=== PATIENT | female | born 1945 | race Caucasian/White ===

== ENCOUNTER → 2017-07-04 | Outpatient (CLI) | payer MEDICARE, OTHER ==
[2014-12-13 10:25] VITALS: BP 139/82
[~2017-07-04] MED LIST: ACLI400A2 IH; ATOR10TA PO; CALC500T54 PO; LEVO50TA5 PO; LOSA1TAB18 PO; MOXI3DRO2 LEFTEYE; MOXI3DRO2 RIGHTEYE; MULT-246 PO; NEPA1.7D LEFTEYE; NEPA1.7D RIGHTEYE; PRED5DRO16 LEFTEYE; PRED5DRO16 RIGHTEYE; VIT1CAPS12 PO
--- NOTE | 2017-07-04 09:29 | RAD ---
Indication chest congestion. History of COPD. Frontal and lateral views of the chest were obtained. Comparison is made to an examination 02/02/2016. There are background changes compatible with emphysema and/or fibrosis. There is a calcified granuloma in the right lung. Heart size is within normal limits. There is no congestive heart failure focal infiltrate significant pleural fluid collection or pneumothorax. There has not been a significant change compared to the previous exam. IMPRESSION: No acute finding. No significant change. Chronic changes are noted
== END | disposition home or self-care (01) ==
LOC: DXRADRC 08:53
PROVIDERS: ATTEND Physician Assistant Medical
DX: J84.10 Pulmonary fibrosis, unspecified (principal); J44.9 Chronic obstructive pulmonary disease, unspecified
CPT/HCPCS: 71020

== ENCOUNTER → 2017-07-09 | Outpatient (CLI) | payer MEDICARE, OTHER ==
[2014-12-13 10:25] VITALS: BP 139/82
--- NOTE | 2017-07-09 17:26 | RAD ---
DATE: 07/09/2017 EXAM: MAMMO MIGUEL SCREENING BILATERAL HISTORY: Asymptomatic screening mammogram. COMPARISON: None available This study was interpreted with the benefit of Computerized Aided Detection (CAD). The breast parenchyma shows scattered fibroglandular densities. Breast parenchyma level B. FINDINGS: Bilateral CC and MLO views of the breasts were performed. Bilateral breast tomosynthesis performed. Right breast: There are no suspicious microcalcifications, masses or areas of architectural distortion. Left breast: There is a 4 mm mass identified in the lower outer left breast at posterior depth with indistinct margins. Recommend targeted ultrasound evaluation. IMPRESSION: Left breast: Incomplete mammogram. Recommend ultrasound evaluation of the lower inner quadrant at posterior depth. Right breast: Negative mammogram. BI-RADS CATEGORY: 0 INCOMPLETE: NEEDS ADDITIONAL IMAGING EVALUATION AND/OR PRIOR MAMMOGRAMS FOR COMPARISON. RECOMMENDED FOLLOW-UP: ADD ADDITIONAL IMAGING PQRS compliance statement: Mammography is a sensitive method for finding small breast cancers, but it does not detect them all and is not a substitute for careful clinical examination. A negative mammogram does not negate a clinically suspicious finding and should not result in delay in biopsying a clinically suspicious abnormality. "Our facility is accredited by the [employer] Mammography Program."
== END | disposition home or self-care (01) ==
LOC: MAMMO 11:27
PROVIDERS: ATTEND Physician Assistant Medical
DX: Z12.31 Encounter for screening mammogram for malignant neoplasm of breast (principal)
CPT/HCPCS: 77063; G0202; 77067

== ENCOUNTER → 2017-07-16 | Outpatient (CLI) | payer MEDICARE, OTHER ==
[2014-12-13 10:25] VITALS: BP 139/82
--- NOTE | 2017-07-16 17:43 | RAD ---
Ultrasound left breast Indication: Abnormality seen on most recent screening mammogram from 07/09/2017. Technique: Left whole breast ultrasound Comparison: Previous mammogram from 07/09/2017 Findings: There is a 5 mm intraparenchymal lymph node between 2 and 3:00 position with central fatty hilum and hilar blood flow. No suspicious cystic or solid mass seen. Impression: Previously seen abnormality on screening mammogram represents interparenchymal lymph node. No other suspicious solid or cystic lesions seen on today's ultrasound. BI-RADS 2: Benign finding.
== END | disposition home or self-care (01) ==
LOC: US 09:25
PROVIDERS: ATTEND Physician Assistant Medical
DX: R92.8 Other abnormal and inconclusive findings on diagnostic imaging of breast (principal)
CPT/HCPCS: 76641

== ENCOUNTER → 2018-03-10 | Outpatient (CLI) | payer MEDICARE, OTHER ==
[2014-12-13 10:25] VITALS: BP 139/82
[~2018-03-10] MED LIST changes: -LOSA1TAB18 PO; +LOSA1TAB25 PO
--- NOTE | 2018-03-10 14:29 | CARD ---
MR#: [id number] Date of Study: 03/10/2018 Ordering Physician: DUKE CHRISTINE, Referring Physician: DUKE CHRISTINE, Tech: TABITHA Pichardo APPROVED REPORT EXAM: Two-dimensional and M-mode echocardiogram with Doppler and color Doppler. Other Information Quality : AverageHR: 71bpm INDICATION COPD Hypertension/HCVD 2D DIMENSIONS RVDd3.0 (2.9-3.5cm)Left Atrium(2D)3.0 (1.6-4.0cm) IVSd0.9 (0.7-1.1cm)Aortic Root(2D)3.4 (2.0-3.7cm) LVDd4.2 (3.9-5.9cm)LVOT Diameter2.1 (1.8-2.4cm) PWd0.8 (0.7-1.1cm)LVDs2.1 (2.5-4.0cm) FS (%) 49.4 %SV64.4 ml LVEF(%)81.1 (>50%) Aortic Valve AoV Peak Jose.144.6cm/sAoV VTI30.8cm AO Peak GR.8.4mmHgLVOT Peak Jose.108.7cm/s LVOT VTI 23.52cmAO Mean GR.5mmHg BRIGETTE (VMAX)2.87ss8VQZ (VTI)2.69cm2 AI P 1/2 Ylpd954ef Mitral Valve MV E Vbtjeehy11.7cm/sMV A Velocity0.4cm/s E/A Lfhqd087.8 Tricuspid Valve TR P. Zqqdadtf971ju/sTR Peak Gr.11mmHg Pulmonary Vein S1 Qqtyeqvd64.0cm/sD2 Trorrgrb28.6cm/s LEFT VENTRICLE The left ventricle is normal size. There is normal left ventricular wall thickness. The left ventricu lar systolic function is normal. The ejection fraction is estimated at 65-70%. There is normal LV seg mental wall motion. RIGHT VENTRICLE The right ventricle is normal size. The right ventricular systolic function is normal. ATRIA The left atrium size is normal. The right atrium size is normal. The interatrial septum is intact wit h no evidence for an atrial septal defect or patent foramen ovale as noted on 2-D or Doppler imaging. AORTIC VALVE The aortic valve is calcified but opens well. Doppler and Color Flow revealed trace to mild aortic re gurgitation. There is no significant aortic valvular stenosis. There is no aortic valvular vegetation . MITRAL VALVE The mitral valve is thickened but opens well. There is no evidence of mitral valve prolapse. There is no mitral valve stenosis. Doppler and Color Flow revealed no mitral valve regurgitation noted. TRICUSPID VALVE The tricuspid valve is not well visualized. Doppler and Color Flow revealed mild tricuspid regurgitat ion. There is no tricuspid valve prolapse or vegetation. There is no tricuspid valve stenosis. PULMONIC VALVE The pulmonic valve is not well visualized. Doppler and Color Flow revealed no pulmonic valvular regur gitation. There is no pulmonic valvular stenosis. GREAT VESSELS The aortic root is normal in size. The IVC is normal in size and collapses >50% with inspiration. PERICARDIAL EFFUSION There is no pleural effusion. There is no evidence of significant pericardial effusion. Critical Notification Critical Value: No <Conclusion> The left ventricular systolic function is normal. The ejection fraction is estimated at 65-70%. There is normal LV segmental wall motion. Trace to mild aortic regurgitation. Mild tricuspid regurgitation. There is no evidence of significant pericardial effusion. Signed by : Jose F Andersen, Electronically Approved : 03/10/2018 14:28:27
== END | disposition home or self-care (01) ==
LOC: ECHO 12:38
PROVIDERS: ATTEND Physician Assistant Medical
DX: J44.9 Chronic obstructive pulmonary disease, unspecified (principal); I11.9 Hypertensive heart disease without heart failure; I08.2 Rheumatic disorders of both aortic and tricuspid valves
CPT/HCPCS: 93306

== ENCOUNTER → 2018-09-23 | Outpatient (CLI) | payer MEDICARE, OTHER ==
[2014-12-13 10:25] VITALS: BP 139/82
[2018-09-23 15:21] LABS: BASO % 0 % (0-3); EOS % 0 % (0-3); HEMATOCRIT 43.6 % (36.0-47.0); HEMOGLOBIN 14.4 g/dL (12.0-15.5); LYMPH # 0.5 x10^3/uL (1.0-4.8); LYMPH % 4 % (24-48); MEAN CORPUSCULAR HEMOGLOBIN 29 pg (25-35); MEAN CORPUSCULAR HGB CONC 33 g/dL (31-37); MEAN CORPUSCULAR VOLUME 87 fL (79-100); MONO # 0.1 x10^3/uL (0.0-1.1); MONO % 1 % (0-9); NEUT # 10.4 x10^3uL (1.8-7.7); NEUT % 94 % (31-73); PLATELET COUNT 298 x10^3/uL (140-400); RED BLOOD COUNT 5.02 x10^6/uL (3.50-5.40); RED CELL DISTRIBUTION WIDTH 12.8 % (11.5-14.5)
[2018-09-23 15:24] LABS: CALCIUM 9.6 mg/dL (8.5-10.1); CREATININE 0.8 mg/dL (0.6-1.0); GFR 70.1; POTASSIUM 4.1 mmol/L (3.5-5.1)
== END | disposition home or self-care (01) ==
LOC: LAB 14:40
PROVIDERS: ATTEND Internal Medicine Critical Care Medicine
DX: J44.9 Chronic obstructive pulmonary disease, unspecified (principal)
CPT/HCPCS: 36415; 80048; 85025; 87070; 87205

== ENCOUNTER → 2018-12-25 | Outpatient (CLI) | payer MEDICARE, OTHER ==
[2014-12-13 10:25] VITALS: BP 139/82
--- NOTE | 2018-12-25 15:09 | RAD ---
EXAM: Chest, 2 views. HISTORY: Shortness of breath. COMPARISON: 07/04/2017 FINDINGS: 2 views of the chest are obtained. There is no infiltrate, pleural effusion or pneumothorax. The heart is normal in size. There are several calcified granulomas. There is hyperinflation due to inspiratory effort or emphysema. IMPRESSION: No acute pulmonary finding. Electronically signed by: Kacie Up MD (12/25/2018 3:04 PM) [place] [id number]
== END | disposition home or self-care (01) ==
LOC: PMG 14:12
PROVIDERS: ATTEND Registered Nurse
DX: R06.02 Shortness of breath (principal)
CPT/HCPCS: 71046

== ENCOUNTER 2019-02-28 11:09 | Inpatient (IN) | payer MEDICARE, OTHER ==
[~2019-02-28] VITALS: Ht 165.1 cm; Wt 53.1 kg
[2019-02-28] VITALS (7 sets, daily range): BP systolic 102–145; BP diastolic 62–80
[~2019-02-28 11:09] MED LIST changes: +MOXI3DRO18 LEFTEYE; +MOXI3DRO18 RIGHTEYE; -MOXI3DRO2 LEFTEYE; -MOXI3DRO2 RIGHTEYE
[2019-02-28 11:30] LABS: BASO # 0.1 x10^3/uL (0.0-0.2); BASO % 1 % (0-3); EOS # 0.4 x10^3/uL (0.0-0.7); EOS % 4 % (0-3); HEMATOCRIT 43.9 % (36.0-47.0); HEMOGLOBIN 14.3 g/dL (12.0-15.5); LYMPH # 1.1 x10^3/uL (1.0-4.8); LYMPH % 10 % (24-48); MEAN CORPUSCULAR HEMOGLOBIN 29 pg (25-35); MEAN CORPUSCULAR HGB CONC 33 g/dL (31-37); MEAN CORPUSCULAR VOLUME 88 fL (79-100); MONO # 0.6 x10^3/uL (0.0-1.1); MONO % 6 % (0-9); NEUT # 8.4 x10^3uL (1.8-7.7); NEUT % 79 % (31-73); PLATELET COUNT 323 x10^3/uL (140-400); RED BLOOD COUNT 4.98 x10^6/uL (3.50-5.40); WHITE BLOOD COUNT 10.5 x10^3/uL (4.0-11.0)
[2019-02-28] MEDS ORDERED: IPRATRPIUM/ALBUTEROL 0.5/2.5MG 3 ML NEBU. NEB ONE (11:30)
[2019-02-28] MEDS ORDERED: methylPREDNISolone SOD SUCC PF 125 MG/2 ML VIAL. IV ONE (11:30)
[2019-02-28 11:51] LABS: ALBUMIN 3.9 g/dL (3.4-5.0); CALCIUM 10.1 mg/dL (8.5-10.1); CREATININE 0.7 mg/dL (0.6-1.0); GFR 81.8; POTASSIUM 4.5 mmol/L (3.5-5.1); TOTAL BILIRUBIN 0.2 mg/dL (0.2-1.0)
--- NOTE | 2019-02-28 11:58 | PHYS DOC ---
Past History Past Medical History: COPD, Hyperthyroid Past Surgical History: Cholecystectomy, Hysterectomy Alcohol Use: None Drug Use: None Adult General Chief Complaint Chief Complaint: SHORTNESS OF BREATH HPI HPI Patient is a 73-year-old female who presents with shortness of breath for the past 2 days. She also notes some upper abdominal pain and generalized weakness. Increased shortness of breath with exertion. Patient reports that she is unable to walk. She does have a history of COPD and is normally on 2-2-1/2 L of oxygen a minute. She increased this to 3 L a minute with continued shortness of breath and inability to walk. No chest pain, no radiation of discomfort in her abdomen. Nothing seems to make the abdominal pain better, chocolate made it worse.[] Review of Systems Review of Systems Constitutional: Denies fever or chills [] Eyes: Denies change in visual acuity, redness, or eye pain [] HENT: Denies nasal congestion or sore throat [] Respiratory: See history of present illness[] Cardiovascular: No additional information not addressed in HPI [] GI: Denies nausea, vomiting, bloody stools or diarrhea, see history of present illness [] : Denies dysuria or hematuria [] Musculoskeletal: Denies back pain or joint pain [] Integument: Denies rash or skin lesions [] Neurologic: Denies headache, focal weakness or sensory changes [] Endocrine: Denies polyuria or polydipsia [] All other systems were reviewed and found to be within normal limits, except as documented in this note. Current Medications Current Medications Current Medications Medications (Trade) Dose Ordered Sig/May Start Time Stop Time Status Last Admin Dose Admin Albuterol/ Ipratropium (Duoneb) 3 ml 1X ONCE 02/28/19 11:30 02/28/19 11:40 DC 02/28/19 11:27 3 ML Methylprednisolone Sodium Succinate (SOLU-Medrol 125MG VIAL) 125 mg 1X ONCE 02/28/19 11:30 02/28/19 11:40 DC 02/28/19 11:27 125 MG Allergies Allergies Allergies Coded Allergies Type Severity Reaction Last Updated Verified No Known Drug Allergies 12/13/14 No Physical Exam Physical Exam Constitutional: Well developed, thin, cachectic, mild discomfort, non-toxic appearance. [] HENT: Normocephalic, atraumatic, bilateral external ears normal, oropharynx moist, no oral exudates, nose normal. [] Eyes: PERRLA, EOMI, conjunctiva normal, no discharge. [] Neck: Normal range of motion, no tenderness, supple, no stridor. [] Cardiovascular:Heart rate regular rhythm, no murmur [] Lungs & Thorax: Bilaterally with significantly decreased breath sounds[] Abdomen: Bowel sounds normal, soft, no tenderness, no masses, no pulsatile masses. [] Skin: Warm, dry, no erythema, no rash. [] Back: No tenderness, no CVA tenderness. [] Extremities: No tenderness, no cyanosis, no clubbing, ROM intact, no edema. [] Neurologic: Alert and oriented X 3, normal motor function, normal sensory function, no focal deficits noted. [] Psychologic: Affect normal, judgement normal, mood normal. [] Current Patient Data Vital Signs Vital Signs Date Time Temp Pulse Resp B/P (MAP) Pulse Ox O2 Delivery O2 Flow Rate FiO2 02/28/19 11:17 98.3 102 18 93 Nasal Cannula 4.5 Lab Results Laboratory Tests Test 02/28/19 11:20 White Blood Count 10.5 x10^3/uL (4.0-11.0) Red Blood Count 4.98 x10^6/uL (3.50-5.40) Hemoglobin 14.3 g/dL (12.0-15.5) Hematocrit 43.9 % (36.0-47.0) Mean Corpuscular Volume 88 fL (79-100) Mean Corpuscular Hemoglobin 29 pg (25-35) Mean Corpuscular Hemoglobin Concent 33 g/dL (31-37) Red Cell Distribution Width 13.0 % (11.5-14.5) Platelet Count 323 x10^3/uL (140-400) Neutrophils (%) (Auto) 79 % (31-73) H Lymphocytes (%) (Auto) 10 % (24-48) L Monocytes (%) (Auto) 6 % (0-9) Eosinophils (%) (Auto) 4 % (0-3) H Basophils (%) (Auto) 1 % (0-3) Neutrophils # (Auto) 8.4 x10^3uL (1.8-7.7) H Lymphocytes # (Auto) 1.1 x10^3/uL (1.0-4.8) Monocytes # (Auto) 0.6 x10^3/uL (0.0-1.1) Eosinophils # (Auto) 0.4 x10^3/uL (0.0-0.7) Basophils # (Auto) 0.1 x10^3/uL (0.0-0.2) Prothrombin Time 9.5 SEC (9.4-11.4) Prothrombin Time INR 1.0 (0.9-1.1) Troponin I Quantitative 0.201 ng/mL (0-0.055) H EKG EKG EKG shows a sinus rhythm at 92 bpm, normal axis, no ST elevation. QTC of 415 ms. No old EKG available for comparison. Interpreted by me at 1135.[] Radiology/Procedures Radiology/Procedures [] Course & Med Decision Making Course & Med Decision Making Pertinent Labs and Imaging studies reviewed. (See chart for details) ED course and medical decision making: Patient arrived, was placed in bed, and tolerated exam well. She had improved breath sounds after the DuoNeb so long albuterol treatment was started. Her troponin is noted to be elevated. She was given aspirin. Uncertain as to whether this is due to relative hypoxia from the COPD exacerbation versus primary cardiac etiology. Nonetheless, the hospitalist was consult at for admission. Lab and imaging findings were discussed with the patient. She was admitted in improved condition.[] Dragon Disclaimer Dragon Disclaimer This electronic medical record was generated, in whole or in part, using a voice recognition dictation system. Departure Departure: Referrals: DUKE CHRISTINE (PCP) HIRAL [place]NA[place] DO Feb 28, 2019 11:58
[2019-02-28] MEDS ORDERED: ASPIRIN 81 MG TAB.CHEW PO ONE (12:30)
[2019-02-28] MEDS ORDERED: MORPHINE SULFATE 4 MG/ML DISP.SYRIN. IV PRN (12:30)
[2019-02-28] MEDS ORDERED: ACETAMINOPHEN 325 MG TABLET PO PRN (12:30)
[2019-02-28] MEDS ORDERED: ALBUTEROL SULFATE 2.5 MG/3 ML NEBU. CONT NEB ONE (12:30)
[2019-02-28] MEDS ORDERED: NITROGLYCERIN SUBLINGUAL 0.4 MG BOTTLE OF 25. SL PRN (12:30)
[2019-02-28] MEDS ORDERED: ONDANSETRON PF 4 MG/2 ML VIAL. IV PRN (12:30)
[2019-02-28] MEDS ORDERED: ONDANSETRON PF 4 MG/2 ML VIAL. IV ONE (12:45)
--- NOTE | 2019-02-28 13:06 | RAD ---
PA and lateral views of the chest. Comparison: Chest radiograph dated 12/25/2018. Indication: SHORT OF BREATH, HX OF COPD Findings: Normal lung volume. Emphysematous changes. No focal airspace disease. Remote granulomatous disease. Normal pulmonary vasculature. No pleural effusion. No pneumothorax. The cardiomediastinal silhouette is unchanged in appearance. Unchanged atherosclerotic and slightly tortuous thoracic aorta. No acute osseous abnormality. Impression: 1. No acute cardiopulmonary process. Electronically signed by: Lake Ruiz MD (02/28/2019 1:02 PM) [facility]
--- NOTE | 2019-02-28 14:09 | NUR ---
NSG NOTE; ADMISSION ADMIT TO ROOM 103 FROM ED AT 1325 VIA CART ACCOMP BY EMS PERSONNEL, SISTER AND SON C/O INCREASING SOA X2 DAYS HAVING TO INCREASE OXYGEN INTAKE FROM USUAL 2L/MIN TO 3L/MIN.
--- NOTE | 2019-02-28 14:10 | NUR ---
JACOBG NOTE; DR MORGAN CONSULT CALLED TO ANSWERING SERVICE AT 1410 Addendum: 02/28/19 at 1419 by DENZEL BHATT RN DR MORGAN RETURNED CONSULT PAGE AT 1419. NO NEW ORDERS RECEIVED
[2019-02-28] MEDS ORDERED: CHOL100013 PO (14:43)
[2019-02-28] MEDS ORDERED: ALBUTEROL SULFATE 2.5 MG/3 ML NEBU. NEB PRN (16:00)
[2019-02-28] MEDS ORDERED: IPRATRPIUM/ALBUTEROL 0.5/2.5MG 3 ML NEBU. NEB SCH (16:00)
[2019-02-28] MEDS: IPRATRPIUM/ALBUTEROL 0.5/2.5MG 3 ML NEBU. NEB SCH ×2 (16:12→20:53)
[2019-02-28 16:17] LABS: BGAS PH 7.31 (7.35-7.45)
--- NOTE | 2019-02-28 17:22 | HP ---
ADMIT DATE: 02/28/2019 HISTORY OF PRESENT ILLNESS: The patient is a 73-year-old female patient who came to the Emergency Room with complaint of shortness of breath that has been going for the last 2 days. She also had some upper abdominal pain, generalized weakness, increased shortness of breath with exertion. Stated the patient is so weak she is unable to walk. She does have a history of COPD and is normally on 2 to 2-1/2 liters of oxygen a minute. She increased her oxygen to 3 liters a minute with continued shortness of breath and inability to walk. She denied any chest pain, denied any chills, rigors or fever. She was evaluated in the Emergency Room. Her lab works were mostly unremarkable. Her chest x-ray showed that the patient has emphysematous changes, no focal airspace disease, remote granulomatous disease. Normal pulmonary vasculature. No pleural effusion and no pneumothorax. The cardiomediastinal silhouette is unchanged in appearance, unchanged atherosclerotic and slightly tortuous thoracic aorta. No acute osseous abnormality. The patient was admitted with acute COPD exacerbation. She apparently has received IV Solu-Medrol together with 2 breathing treatment and was admitted to continue treatment with steroids, bronchodilators. Did complain that she has 3 episodes of diarrhea this morning and apparently she was seen in December by her primary care physician, Vicki Bailon, and was treated with steroids and antibiotic. Two weeks ago she was seen by Dr. Donis, her director environmental and completed a course of steroids and unfortunately 2 days ago, she started having the same symptoms again. PAST MEDICAL HISTORY: Significant for chronic obstructive pulmonary disease, hypertension, hypothyroidism, chronic hypoxic respiratory failure requiring 2 to /2 liters. She is also known to have senile macular degeneration and tinnitus. PAST SURGICAL HISTORY: Significant for total abdominal hysterectomy, bilateral salpingo-oophorectomy, cholecystectomy, bilateral cataract extraction and colonoscopy. ALLERGIES: She has no known drug allergies. MEDICATIONS: She is currently on following medications: She is on losartan/hydrochlorothiazide 100/12.5 mg once a day, levothyroxine sodium 50 mcg once a day, cholecalciferol for vitamin D3 1000 international units once a day, multivitamin 1 tablet once a day, PreserVision eyelids soft gel 1 tablet once a day. FAMILY HISTORY: She has 3 brothers, one brother committed suicide at age 22. The other 2 brothers are alive and healthy. She has 4 sisters, one of them had received a liver transplant for end-stage liver disease and one has multiple hernias with infected mesh. The other 2 her sisters were healthy. Her father at age of 71 because of myocardial infarction. Her mother is still alive at age 92, still lives at home on her own. SOCIAL HISTORY: She is , lives alone. She has 2 daughters and one son. She quit smoking about 10 years ago. She smoked a pack a day for 25-30 years. She has not had any alcohol for the last 2-3 years. She worked for [employer]. REVIEW OF SYSTEMS: The patient denied any blurring of vision, did have bilateral cataract extraction and senile macular degeneration, but denied any glaucoma. Denied any earache. Did have tinnitus in the right ear. Denied any sensorineural deafness. Denied any nosebleeds, stuffy nose or postnasal drip. Denied any sore throat, sore tongue, toothache, hoarseness of voice or difficulty swallowing. Did complain of some nausea this morning, but no vomiting, has had 3 episodes of diarrhea. Denied any hematemesis, melena or hematochezia. Denied any dysuria, frequency or hematuria. Denied any chest pain. Did complain of shortness of breath, orthopnea, paroxysmal nocturnal dyspnea. Denied any cough, phlegm or hemoptysis. Denied any chills, rigors or fever. PHYSICAL EXAMINATION: GENERAL: On arrival to the Emergency Room, the patient was clearly tachypneic. Using her accessory inspiratory muscles and the trachea was central with bilateral reduced chest expansion, air entry, vesicular sounds with diffuse bilateral rhonchi, could not appreciate any crepitation. ABDOMEN: Slightly distended, soft, nontender. NEUROLOGIC: She was awake, alert, responding appropriately. All cranial nerves are intact. EXTREMITIES: She moves extremities without difficulty. She definitely has some anxiety. VITAL SIGNS: On arrival to the Emergency Room showed a heart rate of 102, blood pressure was 105/67, her temperature was 98.3, respiratory rate was 18 and oxygen saturation was 93% on 4.5 liters of oxygen. In fact when I saw her, she was only doing 90% on 4 liters of oxygen by nasal cannula. LABORATORY WORK: Showed a white cell count of 10,500, hemoglobin 14.3, hematocrit 43.9, MCV 88 and platelet count of 323,000 with a manual differential shows 79% polymorphs, 10% lymphocytes and 6% monocytes. Her serum sodium was 141, potassium 4.5, chloride 100, bicarbonate 38, anion gap of 3, BUN of 14, creatinine 0.7, estimated GFR was 82 mL per minute. Her glucose was 128, calcium was 7.1, magnesium was 2. Total bilirubin, AST, ALT, alkaline phosphatase were normal. Her beta natriuretic peptide was 738. Total protein was 8. Albumin was 3.9 and lipase was 106. Her troponin I was 0.01. Her prothrombin time was 9.5 and INR of 1. ASSESSMENT AND PLAN: The patient received aspirin and DuoNeb. We will basically continue with all her medication. I will continue with Solu-Medrol. We will add Mucinex and probably doxycycline. We will follow her closely. I will also check her blood gases. She has very unlikely pounding pulsation indicating probably carbon dioxide retention. HELIO BANGURA MD DR: MARINE/yosef JOB#: [id number] / [id number]
[2019-02-28] MEDS: methylPREDNISolone SOD SUCC PF 125 MG/2 ML VIAL. IV SCH (17:44)
--- NOTE | 2019-02-28 18:15 | EKG ---
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
[2019-02-28] MEDS: MONTELUKAST 10 MG TABLET. PO SCH (21:40)
[2019-02-28] MEDS: LACTOBACILLUS RHAMNOSUS GG 1 CAPSULE. PO SCH (21:40)
[2019-02-28] MEDS: DOXYCYCLINE HYCLATE 100 MG TABLET PO SCH (21:40)
--- NOTE | 2019-02-28 21:58 | NUR ---
Call placed to Dr. Quiroz regarding RT unable to draw recheck ABG tonight. Dr. Quiroz said to continue with Bipap tonight and reorder for in the AM.
[2019-03-01] VITALS (25 sets, daily range): BP systolic 90–135; BP diastolic 53–81
[2019-03-01] MEDS: IPRATRPIUM/ALBUTEROL 0.5/2.5MG 3 ML NEBU. NEB SCH ×4 (04:39→20:34)
[2019-03-01] MEDS: methylPREDNISolone SOD SUCC PF 125 MG/2 ML VIAL. IV SCH ×5 (05:47→23:26)
[2019-03-01] MEDS: LEVOTHYROXINE 50 MCG TABLET PO SCH (05:48)
[2019-03-01 06:18] LABS: BASO % 0 % (0-3); EOS % 0 % (0-3); HEMATOCRIT 38.9 % (36.0-47.0); HEMOGLOBIN 12.9 g/dL (12.0-15.5); LYMPH # 0.5 x10^3/uL (1.0-4.8); LYMPH % 4 % (24-48); MEAN CORPUSCULAR HEMOGLOBIN 29 pg (25-35); MEAN CORPUSCULAR HGB CONC 33 g/dL (31-37); MEAN CORPUSCULAR VOLUME 87 fL (79-100); MONO # 0.2 x10^3/uL (0.0-1.1); MONO % 1 % (0-9); NEUT # 11.4 x10^3uL (1.8-7.7); NEUT % 95 % (31-73); PLATELET COUNT 285 x10^3/uL (140-400); RED BLOOD COUNT 4.46 x10^6/uL (3.50-5.40); RED CELL DISTRIBUTION WIDTH 12.8 % (11.5-14.5)
[2019-03-01 06:30] LABS: ALBUMIN 3.5 g/dL (3.4-5.0); ALBUMIN/GLOBULIN RATIO 0.9 (1.0-1.7); CALCIUM 9.5 mg/dL (8.5-10.1); CREATININE 0.7 mg/dL (0.6-1.0); GFR 81.8; POTASSIUM 4.6 mmol/L (3.5-5.1); TOTAL BILIRUBIN 0.4 mg/dL (0.2-1.0); TOTAL PROTEIN 7.2 g/dL (6.4-8.2)
[2019-03-01 07:13] LABS: BILIRUBIN,URINE NEG (NEG); CLARITY,URINE CLEAR; COLOR,URINE YELLOW; GLUCOSE,URINE NEG (NEG); NITRITE,URINE NEG (NEG); UROBILINOGEN,URINE 0.2 mg/dL (0.2 mg/dL)
[2019-03-01 07:14] LABS: BACTERIA,URINE 0 /HPF (0-FEW); RBC,URINE RARE /HPF (0-2); SQUAMOUS EPITHELIAL CELL,UR FEW /LPF; WBC,URINE OCC /HPF (0-4)
[2019-03-01 07:40] LABS: % BANDS 2 % (0-9); % LYMPHS 4 % (24-48); % MONOS 1 % (0-10); % SEGS 93 % (35-66); PLT ESTIMATE ADEQUATE (ADEQUATE)
[2019-03-01 08:10] LABS: BGAS PH 7.42 (7.35-7.45)
[2019-03-01] MEDS: LOSARTAN 50 MG TABLET. PO SCH (08:53)
[2019-03-01] MEDS: MULTIVITAMIN I-VITE TABLET. PO SCH (08:53)
[2019-03-01] MEDS: LACTOBACILLUS RHAMNOSUS GG 1 CAPSULE. PO SCH ×2 (08:53→20:38)
[2019-03-01] MEDS: DOXYCYCLINE HYCLATE 100 MG TABLET PO SCH ×2 (08:54→20:38)
[2019-03-01] MEDS: hydroCHLOROthiazide 12.5 MG CAPSULE PO SCH (08:54)
[2019-03-01] MEDS: CHOLECALCIFEROL (VITAMIN D3) 1,000 UNIT TABLET PO SCH (08:55)
[2019-03-01] MEDS: MULTIVITAMIN with MINERAL TABLET. PO SCH (08:55)
--- NOTE | 2019-03-01 09:36 | PDOC2 ---
CONSULT Date of Admission DATE: 03/01/19 TIME: 09:30 Reason for Consult: NSTEMI Problem List Problems Medical Problems: (1) COPD exacerbation Status: Acute (2) NSTEMI (non-ST elevated myocardial infarction) Status: Acute History of Present Illness Ms Guzman is a 73 year old female with history of oxygen dependant COPD. She reports increased shortness of breath since Feb which was gradually worsening. She reports improvement initially with breathing treatments. She denies chest pain, or discomfort. She denies congestive symptoms or edema. She denies palpitations, lightheadedness or syncope. She is somewhat limited in giving history due to Bipap. Cardiovascular: HTN, hyperipidemia Pulmonary: COPD Psych: Anxiety Musculoskeletal: Osteoarthritis ENT: Other (tinnitus, cataracts) Endocrine: Hypothyroidism Past Surgical History: Cholecystectomy, Hysterectomy Family History CAD, Diabetes. cancer Social History +smoking - quit 2008, no significant ETOH, no illicit drugs Current Medications Current Medications Albuterol/ Ipratropium (Duoneb) 3 ml 1X ONCE NEB Last administered on at 11:27; Start 02/28/19 at 11:30; Stop 02/28/19 at 11:40; Status DC Methylprednisolone Sodium Succinate (SOLU-Medrol 125MG VIAL) 125 mg 1X ONCE IV Last administered on 02/28/19at 11:27; Start 02/28/19 at 11:30; Stop 02/28/19 at 11:40; Status DC Albuterol Sulfate (Ventolin) 10 mg 1X ONCE CONT NEB Last administered on at 12:02; Start 02/28/19 at 12:30; Stop 02/28/19 at 12:31; Status DC Aspirin (Children'S Aspirin) 324 mg 1X ONCE PO Last administered on 02/28/19at 12:13; Start 02/28/19 at 12:30; Stop 02/28/19 at 12:31; Status DC Ondansetron HCl (Zofran) 4 mg 1X ONCE IV Last administered on 02/28/19at 12:23; Start 02/28/19 at 12:45; Stop 02/28/19 at 12:46; Status DC Ondansetron HCl (Zofran) 4 mg PRN Q4HRS PRN IV NAUSEA/VOMITING; Start 02/28/19 at 12:30; Stop 03/01/19 at 12:29 Morphine Sulfate (Morphine 4mg Syringe) 2 mg PRN Q2HR PRN IV PAIN; Start at 12:30; Stop 03/01/19 at 12:29 Acetaminophen (Tylenol) 650 mg PRN Q4HRS PRN PO FEVER; Start 02/28/19 at 12:30; Stop 03/01/19 at 12:29 Nitroglycerin (Nitrostat) 0.4 mg PRN Q5MIN PRN SL CHEST PAIN; Start 02/28/19 at 12:30; Stop 03/01/19 at 12:29 Albuterol/ Ipratropium (Duoneb) 3 ml RTQID NEB ; Start 02/28/19 at 16:00; Stop at 16:06; Status DC Vitamin D (Vitamin D3) 1,000 unit DAILY PO Last administered on 03/01/19 08:55 ; Start 03/01/19 at 09:00 Levothyroxine Sodium (Synthroid) 50 mcg DAILY06 PO Last administered on 05:48; Start 03/01/19 at 06:00 Losartan Potassium (Cozaar) 100 mg DAILY PO Last administered on 03/01/19 08:53 ; Start 03/01/19 at 09:00 Multivitamins/ Calcium (Thera-M Plus) 1 tab DAILY PO Last administered on 08:55; Start 03/01/19 at 09:00 Multivitamins/ Minerals (I-Radha) 1 tab DAILY PO Last administered on 03/01/19 08:53; Start 03/01/19 at 09:00 Hydrochlorothiazide (Microzide) 12.5 mg DAILY PO Last administered on 03/01/19 08:54; Start 03/01/19 at 09:00 Albuterol/ Ipratropium (Duoneb) 3 ml RTQID NEB Last administered on 03/01/19 04 :39; Start 02/28/19 at 16:00 Albuterol Sulfate (Ventolin) 2.5 mg Q2H PRN NEB SHORTNESS OF BREATH; Start 02/28 at 16:00 Montelukast Sodium (Singulair) 10 mg QHS PO Last administered on 02/28/19at 21:40 ; Start 02/28/19 at 21:00 Guaifenesin (Mucinex Er) 600 mg BID PO Last administered on 03/01/19 08:54; Start 02/28/19 at 21:00 Doxycycline Hyclate (Vibra-Tab) 100 mg BID PO Last administered on 03/01/19at 08: 54; Start 02/28/19 at 21:00 Methylprednisolone Sodium Succinate (SOLU-Medrol 125MG VIAL) 62.5 mg Q6HRS IV Last administered on 03/01/19at 05:47; Start 02/28/19 at 18:00 Lactobacillus Rhamnosus (Culturelle) 1 cap BID PO Last administered on 08:53; Start 02/28/19 at 21:00 Active Scripts Active Reported Vitamin D (Cholecalciferol (Vitamin D3)) 1,000 Unit Capsule 1 Cap PO DAILY Preservision Areds Softgel (Vit A/Vit C/Vit E/Zinc/Copper) 1 Each Capsule 1 Each PO DAILY LAST DOSE GIVEN: DATE: TIME: NEXT DOSE DUE: DATE: TIME: Multi-Vitamin Daily (Multivitamin) 1 Each Tablet 1 Each PO DAILY LAST DOSE GIVEN: DATE: TIME: NEXT DOSE DUE: DATE: TIME: Losartan-Hctz 100-12.5 Mg Tab (Losartan/Hydrochlorothiazide) 1 Each Tablet 1 Tab PO DAILY LAST DOSE GIVEN: DATE: TIME: NEXT DOSE DUE: DATE: TIME: Levothyroxine Sodium 50 Mcg Tablet 1 Tab PO DAILY LAST DOSE GIVEN: DATE: TIME: NEXT DOSE DUE: DATE: TIME: Allergies: Coded Allergies: No Known Drug Allergies (Unverified , 12/13/14) Review of System as per HPI General: Alert, Oriented X3, Cooperative, No acute distress, Other (remains on bipap) HEENT: Atraumatic, EOMI Lungs: Other (decreased throughout ) Heart: Normal S1, Normal S2, Other (no obvious murmurs, no gallops, clicks or rubs) Abdomen: Normal bowel sounds, Soft Extremities: No cyanosis, Normal pulses, Other (no significant edema) Neuro: Normal speech, Strength at 5/5 X4 ext Psych/Mental Status: Mental status NL, Mood NL VITALS Vital Signs Date Time Temp Pulse Resp B/P (MAP) Pulse Ox O2 Delivery O2 Flow Rate FiO2 03/01/19 08:53 80 117/62 03/01/19 06:09 20 94 BiPAP/CPAP 03/01/19 04:09 97.2 02/28/19 19:03 4.0 Labs Laboratory Tests Test 02/28/19 11:20 02/28/19 15:35 02/28/19 15:50 02/28/19 18:30 White Blood Count 10.5 x10^3/uL (4.0-11.0) Red Blood Count 4.98 x10^6/uL (3.50-5.40) Hemoglobin 14.3 g/dL (12.0-15.5) Hematocrit 43.9 % (36.0-47.0) Mean Corpuscular Volume 88 fL (79-100) Mean Corpuscular Hemoglobin 29 pg (25-35) Mean Corpuscular Hemoglobin Concent 33 g/dL (31-37) Red Cell Distribution Width 13.0 % (11.5-14.5) Platelet Count 323 x10^3/uL (140-400) Neutrophils (%) (Auto) 79 % (31-73) Lymphocytes (%) (Auto) 10 % (24-48) Monocytes (%) (Auto) 6 % (0-9) Eosinophils (%) (Auto) 4 % (0-3) Basophils (%) (Auto) 1 % (0-3) Neutrophils # (Auto) 8.4 x10^3uL (1.8-7.7) Lymphocytes # (Auto) 1.1 x10^3/uL (1.0-4.8) Monocytes # (Auto) 0.6 x10^3/uL (0.0-1.1) Eosinophils # (Auto) 0.4 x10^3/uL (0.0-0.7) Basophils # (Auto) 0.1 x10^3/uL (0.0-0.2) Prothrombin Time 9.5 SEC (9.4-11.4) Prothromb Time International Ratio 1.0 (0.9-1.1) Sodium Level 141 mmol/L (136-145) Potassium Level 4.5 mmol/L (3.5-5.1) Chloride Level 100 mmol/L (98-107) Carbon Dioxide Level 38 mmol/L (21-32) Anion Gap 3 (6-14) Blood Urea Nitrogen 14 mg/dL (7-20) Creatinine 0.7 mg/dL (0.6-1.0) Estimated GFR (Cockcroft-Gault) 81.8 BUN/Creatinine Ratio 20 (6-20) Glucose Level 128 mg/dL (70-99) Calcium Level 10.1 mg/dL (8.5-10.1) Magnesium Level 2.0 mg/dL (1.8-2.4) Total Bilirubin 0.2 mg/dL (0.2-1.0) Aspartate Amino Transf (AST/SGOT) 17 U/L (15-37) Alanine Aminotransferase (ALT/SGPT) 19 U/L (14-59) Alkaline Phosphatase 87 U/L (46-116) Troponin I Quantitative 0.201 ng/mL (0-0.055) 0.213 ng/mL (0-0.055) 0.218 ng/mL (0-0.055) PF-Cma-V-Type Natriuretic Peptide 738 pg/mL (0-124) Total Protein 8.0 g/dL (6.4-8.2) Albumin 3.9 g/dL (3.4-5.0) Albumin/Globulin Ratio 1.0 (1.0-1.7) Lipase 106 U/L (73-393) Blood Gas pH 7.31 (7.35-7.45) Blood Gas PCO2 81 mmHg (35-45) Blood Gas PO2 79 mmHg (71-100) Blood Gas HCO3 40 mmol/L (22-26) Arterial Bld O2 Saturation (Calc) 93 % (92-99) FiO2 36 % Test 03/01/19 05:44 03/01/19 06:30 03/01/19 07:59 White Blood Count 12.0 x10^3/uL (4.0-11.0) Red Blood Count 4.46 x10^6/uL (3.50-5.40) Hemoglobin 12.9 g/dL (12.0-15.5) Hematocrit 38.9 % (36.0-47.0) Mean Corpuscular Volume 87 fL (79-100) Mean Corpuscular Hemoglobin 29 pg (25-35) Mean Corpuscular Hemoglobin Concent 33 g/dL (31-37) Red Cell Distribution Width 12.8 % (11.5-14.5) Platelet Count 285 x10^3/uL (140-400) Neutrophils (%) (Auto) 95 % (31-73) Lymphocytes (%) (Auto) 4 % (24-48) Monocytes (%) (Auto) 1 % (0-9) Eosinophils (%) (Auto) 0 % (0-3) Basophils (%) (Auto) 0 % (0-3) Neutrophils # (Auto) 11.4 x10^3uL (1.8-7.7) Lymphocytes # (Auto) 0.5 x10^3/uL (1.0-4.8) Monocytes # (Auto) 0.2 x10^3/uL (0.0-1.1) Eosinophils # (Auto) 0.0 x10^3/uL (0.0-0.7) Basophils # (Auto) 0.0 x10^3/uL (0.0-0.2) Segmented Neutrophils % 93 % (35-66) Band Neutrophils % 2 % (0-9) Lymphocytes % 4 % (24-48) Monocytes % 1 % (0-10) Platelet Estimate Adequate (ADEQUATE) Large Platelets Occ Sodium Level 139 mmol/L (136-145) Potassium Level 4.6 mmol/L (3.5-5.1) Chloride Level 100 mmol/L (98-107) Carbon Dioxide Level 39 mmol/L (21-32) Anion Gap 0 (6-14) Blood Urea Nitrogen 19 mg/dL (7-20) Creatinine 0.7 mg/dL (0.6-1.0) Estimated GFR (Cockcroft-Gault) 81.8 BUN/Creatinine Ratio 27 (6-20) Glucose Level 143 mg/dL (70-99) Calcium Level 9.5 mg/dL (8.5-10.1) Total Bilirubin 0.4 mg/dL (0.2-1.0) Aspartate Amino Transf (AST/SGOT) 13 U/L (15-37) Alanine Aminotransferase (ALT/SGPT) 16 U/L (14-59) Alkaline Phosphatase 71 U/L (46-116) Total Protein 7.2 g/dL (6.4-8.2) Albumin 3.5 g/dL (3.4-5.0) Albumin/Globulin Ratio 0.9 (1.0-1.7) Urine Collection Type Unknown Urine Color Yellow Urine Clarity Clear Urine pH 6.0 Urine Specific Aldie 1.020 Urine Protein Trace (NEG-TRACE) Urine Glucose (UA) Neg mg/dL (NEG) Urine Ketones (Stick) Trace mg/dL (NEG) Urine Blood Neg (NEG) Urine Nitrite Neg (NEG) Urine Bilirubin Neg (NEG) Urine Urobilinogen Dipstick 0.2 mg/dL (0.2 mg/dL) Urine Leukocyte Esterase Neg (NEG) Urine RBC Rare /HPF (0-2) Urine WBC Occ /HPF (0-4) Urine Squamous Epithelial Cells Few /LPF Urine Bacteria 0 /HPF (0-FEW) Urine Mucus Slight /LPF Blood Gas pH 7.42 (7.35-7.45) Blood Gas PCO2 58 mmHg (35-45) Blood Gas PO2 71 mmHg (71-100) Blood Gas HCO3 38 mmol/L (22-26) Arterial Bld O2 Saturation (Calc) 94 % (92-99) FiO2 25 % Images CXR - Impression: 1. No acute cardiopulmonary process. Assessment/Plan 1. NSTEMI - demand related. check echo for LV function and wall motion. Check lipids. Continue aspirin. No beta berlin due to COPD. Plan for MPI when acute respiratory issues have stabilized. 2. Acute on chronic hypercapnic respiratory failure - On Bipap, mgmt per PCP 3. Hypertension - controlled on current medical therapy. RENETTA MANDUJANO LOADING MACHINE OPERATOR Mar 01, 2019 09:36
--- NOTE | 2019-03-01 15:11 | CARD ---
MR#: [id number] Date of Study: 03/01/2019 Ordering Physician: RENETTA MANDUJANO, Referring Physician: HELIO BANGURA Tech: Kaitlin Worthington RDCS APPROVED REPORT EXAM: Two-dimensional and M-mode echocardiogram with Doppler and color Doppler. Other Information Quality : Good INDICATION Non STEMI 2D DIMENSIONS RVDd2.9 (2.9-3.5cm)Left Atrium(2D)3.1 (1.6-4.0cm) IVSd1.0 (0.7-1.1cm)Aortic Root(2D)3.0 (2.0-3.7cm) LVDd3.9 (3.9-5.9cm)PWd0.9 (0.7-1.1cm) LVDs2.1 (2.5-4.0cm)FS (%) 30.0 % SV50.3 mlLVEF(%)60.0 (>50%) Aortic Valve AoV Peak Jose.155.9cm/sAoV VTI24.6cm AO Peak GR.9.7mmHgAO Mean GR.5mmHg BRIGETTE (VTI)3.05cm2 Mitral Valve MV E Qkxockwv65.3cm/sMV DECEL [id number] MV A Yiqqpsmy27.8cm/sE/A Ratio0.8 LEFT VENTRICLE The left ventricle is normal size. There is normal left ventricular wall thickness. The left ventricu lar systolic function is normal and the ejection fraction is within normal range. The Ejection Fracti on is 60-65%. There is normal LV segmental wall motion. Transmitral Doppler flow pattern is Grade I-a bnormal relaxation pattern. RIGHT VENTRICLE The right ventricle is normal size. The right ventricular systolic function is normal. ATRIA The left atrium size is normal. The right atrium size is normal. The interatrial septum is intact wit h no evidence for an atrial septal defect or patent foramen ovale as noted on 2-D or Doppler imaging. AORTIC VALVE The aortic valve is calcified but opens well. Doppler and Color Flow revealed no significant aortic r egurgitation. There is no significant aortic valvular stenosis. MITRAL VALVE The mitral valve is calcified but opens well. There is no evidence of mitral valve prolapse. There is no mitral valve stenosis. Doppler and Color Flow revealed no mitral valve regurgitation noted. TRICUSPID VALVE The tricuspid valve is normal in structure and function. Doppler and Color Flow revealed no tricuspid valve regurgitation noted. There is no tricuspid valve stenosis. PULMONIC VALVE The pulmonary valve is normal in structure and function. Doppler and Color Flow revealed no pulmonic valvular regurgitation. There is no pulmonic valvular stenosis. GREAT VESSELS The aortic root is normal in size. The ascending aorta is mildly dilated at 3.4 cm. The IVC is normal in size and collapses >50% with inspiration. PERICARDIAL EFFUSION There is no evidence of significant pericardial effusion. Critical Notification Critical Value: No <Conclusion> The left ventricular systolic function is normal and the ejection fraction is within normal range. Th e Ejection Fraction is 60-65%. There is normal LV segmental wall motion. The ascending aorta is mildly dilated at 3.4 cm. Signed by : Ruddy Delacruz, Electronically Approved : 03/01/2019 15:11:11
[2019-03-01] MEDS: MONTELUKAST 10 MG TABLET. PO SCH (20:38)
[2019-03-02] VITALS (16 sets, daily range): BP systolic 101–165; BP diastolic 54–82
--- NOTE | 2019-03-02 05:40 | PN ---
DATE: 03/01/2019 SUBJECTIVE: The patient is resting, slightly propped up in bed, in no apparent distress. She is much improved. We did put her on BiPAP machine last night and her blood gases this morning was much better. Her pH was up to 7.42, pCO2 down to 58, pO2 71, bicarbonate 38 and oxygen saturation was 94% and FiO2 25%. PHYSICAL EXAMINATION: GENERAL: When I examined her, she was resting slightly propped up in bed, in no apparent respiratory distress. There is no pallor, jaundice, cyanosis, or thyromegaly. No jugular venous distension. No limb edema. VITAL SIGNS: Her heart rate was 100, blood pressure was 134/81, temperature was 97.7, respiratory rate was 29, oxygen saturation was 98% on 3 liters of oxygen by nasal cannula. HEAD, EYES, EARS, NOSE AND THROAT: Showed normocephalic, atraumatic. NECK: Supple. HEART: Showed normal first and second heart sounds. No gallop, rub or murmur. CHEST: Shows central trachea, equally reduced expansion, reduced air entry, vesicular sounds. No crepitation or rhonchi. ABDOMEN: Distended, soft, nontender. NEUROLOGIC: She was awake, alert, responding appropriately. Cranial nerves intact. She moves extremities without difficulty. Her intake and output were incompletely recorded. LABORATORY DATA: Her lab work this morning showed a white cell count 12,000, hemoglobin 12.9, hematocrit 39, MCV 87 and platelet count 285,000. Her chemistry showed a serum sodium 139, potassium 4.6, chloride 100, bicarbonate 39, anion gap of 0, BUN 19, creatinine 0.7, estimated GFR was 82 mL per minute. Her glucose 143, calcium was 9.5. Total bilirubin, AST, ALT, alkaline phosphatase were normal. Her total protein was 7.2, albumin 3.5. Her triglycerides were 44, total cholesterol was 221, LDL was 137, VLDL was 8, HDL cholesterol was 76 and the ratio was 2. Her TSH was low at 0.338. Her blood gases with a pH of 7.42, a pCO2 of 58, pO2 of 71, bicarbonate 38 and oxygen saturation was 94% on FiO2 25%. Her nasal screen for MRSA by PCR was negative and urinalysis was essentially unremarkable. She apparently was seen by the ethanol maintenance mechanic as she has elevation of her troponin and was diagnosed with non-ST segment elevation myocardial infarction. An echocardiogram was done to evaluate left ventricular function and wall motion with a plan to do a nuclear stress test as an outpatient. Plan is to continue with current ____ especially methylprednisolone, sodium succinate every 6 hours. Continue with bronchodilators. Continue with all other medication and we will probably continue with doxycycline 100 mg twice a day. Will repeat her blood gas tomorrow and decide further management accordingly. HELIO BANGURA MD DR: MARINE/yosef JOB#: [id number] / [id number]
[2019-03-02] MEDS: IPRATRPIUM/ALBUTEROL 0.5/2.5MG 3 ML NEBU. NEB SCH ×4 (05:43→19:17)
[2019-03-02] MEDS: methylPREDNISolone SOD SUCC PF 125 MG/2 ML VIAL. IV SCH ×3 (05:54→21:18)
[2019-03-02] MEDS: LEVOTHYROXINE 50 MCG TABLET PO SCH (05:54)
[2019-03-02 05:57] LABS: HEMATOCRIT 40.4 % (36.0-47.0); HEMOGLOBIN 12.9 g/dL (12.0-15.5); RED BLOOD COUNT 4.59 x10^6/uL (3.50-5.40); WHITE BLOOD COUNT 20.6 x10^3/uL (4.0-11.0)
[2019-03-02 06:08] LABS: ALBUMIN 3.3 g/dL (3.4-5.0); ALBUMIN/GLOBULIN RATIO 0.9 (1.0-1.7); CALCIUM 9.1 mg/dL (8.5-10.1); CREATININE 0.7 mg/dL (0.6-1.0); GFR 81.8; POTASSIUM 4.4 mmol/L (3.5-5.1); TOTAL BILIRUBIN 0.3 mg/dL (0.2-1.0); TOTAL PROTEIN 6.8 g/dL (6.4-8.2)
--- NOTE | 2019-03-02 08:44 | PDOC ---
PROGRESS NOTES Diagnosis Problem Problems Medical Problems: (1) COPD exacerbation Status: Acute (2) NSTEMI (non-ST elevated myocardial infarction) Status: Acute Assessment Problems Medical Problems: (1) COPD exacerbation Status: Acute (2) NSTEMI (non-ST elevated myocardial infarction) Status: Acute 1. NSTEMI - demand mediated. . Normal LV function and wall motion by echo. Continue aspirin. No beta berlin due to COPD. Plan for MPI when acute respiratory issues have stabilized. 2. Acute on chronic hypercapnic respiratory failure - on [place] oxygen this am. mgmt per PCP 3. Hypertension - controlled on current medical therapy. 4. dyslipidemia - add statin. re-check lipids in 6-8 weeks. Subjective feeling better but reports still very short of breath with minimal activity. no chest pain, no palpitations, or lightheadedness. Objective Vital Signs Date Time Temp Pulse Resp B/P (MAP) Pulse Ox O2 Delivery O2 Flow Rate FiO2 03/02/19 06:20 93 123/71 (88) 03/02/19 06:00 98.5 03/02/19 06:00 Nasal Cannula 1.0 03/02/19 05:43 96 03/02/19 04:39 21 Intake and Output 03/02/19 07:00 Intake Total 1540 ml Output Total 1775 ml Balance -235 ml Intake Oral 1540 ml Output Urine Total 1775 ml # Voids 1 Abdomen: Normal bowel sounds, Soft, No tenderness Heart: Normal S1, Normal S2, Other (no gallops, clicks or rubs) Extremities: No cyanosis, No edema, Normal pulses General: Alert, Oriented X3, Cooperative HEENT: Atraumatic, EOMI, Mucous membr. moist/pink Lungs: Other (decreased throughout) Neuro: Normal speech Psych/Mental Status: Mental status NL, Mood NL Review of Relevant I have reviewed the following items erlin (where applicable) has been applied. Labs Laboratory Tests Test 02/28/19 11:20 02/28/19 15:35 02/28/19 15:50 02/28/19 18:30 White Blood Count 10.5 x10^3/uL (4.0-11.0) Red Blood Count 4.98 x10^6/uL (3.50-5.40) Hemoglobin 14.3 g/dL (12.0-15.5) Hematocrit 43.9 % (36.0-47.0) Mean Corpuscular Volume 88 fL (79-100) Mean Corpuscular Hemoglobin 29 pg (25-35) Mean Corpuscular Hemoglobin Concent 33 g/dL (31-37) Red Cell Distribution Width 13.0 % (11.5-14.5) Platelet Count 323 x10^3/uL (140-400) Neutrophils (%) (Auto) 79 % (31-73) Lymphocytes (%) (Auto) 10 % (24-48) Monocytes (%) (Auto) 6 % (0-9) Eosinophils (%) (Auto) 4 % (0-3) Basophils (%) (Auto) 1 % (0-3) Neutrophils # (Auto) 8.4 x10^3uL (1.8-7.7) Lymphocytes # (Auto) 1.1 x10^3/uL (1.0-4.8) Monocytes # (Auto) 0.6 x10^3/uL (0.0-1.1) Eosinophils # (Auto) 0.4 x10^3/uL (0.0-0.7) Basophils # (Auto) 0.1 x10^3/uL (0.0-0.2) Prothrombin Time 9.5 SEC (9.4-11.4) Prothromb Time International Ratio 1.0 (0.9-1.1) Sodium Level 141 mmol/L (136-145) Potassium Level 4.5 mmol/L (3.5-5.1) Chloride Level 100 mmol/L (98-107) Carbon Dioxide Level 38 mmol/L (21-32) Anion Gap 3 (6-14) Blood Urea Nitrogen 14 mg/dL (7-20) Creatinine 0.7 mg/dL (0.6-1.0) Estimated GFR (Cockcroft-Gault) 81.8 BUN/Creatinine Ratio 20 (6-20) Glucose Level 128 mg/dL (70-99) Calcium Level 10.1 mg/dL (8.5-10.1) Magnesium Level 2.0 mg/dL (1.8-2.4) Total Bilirubin 0.2 mg/dL (0.2-1.0) Aspartate Amino Transf (AST/SGOT) 17 U/L (15-37) Alanine Aminotransferase (ALT/SGPT) 19 U/L (14-59) Alkaline Phosphatase 87 U/L (46-116) Troponin I Quantitative 0.201 ng/mL (0-0.055) 0.213 ng/mL (0-0.055) 0.218 ng/mL (0-0.055) ES-Dsc-W-Type Natriuretic Peptide 738 pg/mL (0-124) Total Protein 8.0 g/dL (6.4-8.2) Albumin 3.9 g/dL (3.4-5.0) Albumin/Globulin Ratio 1.0 (1.0-1.7) Lipase 106 U/L (73-393) Blood Gas pH 7.31 (7.35-7.45) Blood Gas PCO2 81 mmHg (35-45) Blood Gas PO2 79 mmHg (71-100) Blood Gas HCO3 40 mmol/L (22-26) Arterial Bld O2 Saturation (Calc) 93 % (92-99) FiO2 36 % Test 02/28/19 22:40 03/01/19 05:44 03/01/19 06:30 03/01/19 07:59 Nasal Screen MRSA (PCR) Negative (Negative) White Blood Count 12.0 x10^3/uL (4.0-11.0) Red Blood Count 4.46 x10^6/uL (3.50-5.40) Hemoglobin 12.9 g/dL (12.0-15.5) Hematocrit 38.9 % (36.0-47.0) Mean Corpuscular Volume 87 fL (79-100) Mean Corpuscular Hemoglobin 29 pg (25-35) Mean Corpuscular Hemoglobin Concent 33 g/dL (31-37) Red Cell Distribution Width 12.8 % (11.5-14.5) Platelet Count 285 x10^3/uL (140-400) Neutrophils (%) (Auto) 95 % (31-73) Lymphocytes (%) (Auto) 4 % (24-48) Monocytes (%) (Auto) 1 % (0-9) Eosinophils (%) (Auto) 0 % (0-3) Basophils (%) (Auto) 0 % (0-3) Neutrophils # (Auto) 11.4 x10^3uL (1.8-7.7) Lymphocytes # (Auto) 0.5 x10^3/uL (1.0-4.8) Monocytes # (Auto) 0.2 x10^3/uL (0.0-1.1) Eosinophils # (Auto) 0.0 x10^3/uL (0.0-0.7) Basophils # (Auto) 0.0 x10^3/uL (0.0-0.2) Segmented Neutrophils % 93 % (35-66) Band Neutrophils % 2 % (0-9) Lymphocytes % 4 % (24-48) Monocytes % 1 % (0-10) Platelet Estimate Adequate (ADEQUATE) Large Platelets Occ Sodium Level 139 mmol/L (136-145) Potassium Level 4.6 mmol/L (3.5-5.1) Chloride Level 100 mmol/L (98-107) Carbon Dioxide Level 39 mmol/L (21-32) Anion Gap 0 (6-14) Blood Urea Nitrogen 19 mg/dL (7-20) Creatinine 0.7 mg/dL (0.6-1.0) Estimated GFR (Cockcroft-Gault) 81.8 BUN/Creatinine Ratio 27 (6-20) Glucose Level 143 mg/dL (70-99) Calcium Level 9.5 mg/dL (8.5-10.1) Total Bilirubin 0.4 mg/dL (0.2-1.0) Aspartate Amino Transf (AST/SGOT) 13 U/L (15-37) Alanine Aminotransferase (ALT/SGPT) 16 U/L (14-59) Alkaline Phosphatase 71 U/L (46-116) Total Protein 7.2 g/dL (6.4-8.2) Albumin 3.5 g/dL (3.4-5.0) Albumin/Globulin Ratio 0.9 (1.0-1.7) Triglycerides Level 44 mg/dL (0-150) Cholesterol Level 221 mg/dL (0-200) LDL Cholesterol, Calculated 137 mg/dL (0-100) VLDL Cholesterol, Calculated 8 mg/dL (0-40) Non-HDL Cholesterol Calculated 145 mg/dL (0-129) HDL Cholesterol 76 mg/dL (40-60) Cholesterol/HDL Ratio 2.0 Thyroid Stimulating Hormone (TSH) 0.338 uIU/mL (0.358-3.740) Urine Collection Type Unknown Urine Color Yellow Urine Clarity Clear Urine pH 6.0 Urine Specific [place] 1.020 Urine Protein Trace (NEG-TRACE) Urine Glucose (UA) Neg mg/dL (NEG) Urine Ketones (Stick) Trace mg/dL (NEG) Urine Blood Neg (NEG) Urine Nitrite Neg (NEG) Urine Bilirubin Neg (NEG) Urine Urobilinogen Dipstick 0.2 mg/dL (0.2 mg/dL) Urine Leukocyte Esterase Neg (NEG) Urine RBC Rare /HPF (0-2) Urine WBC Occ /HPF (0-4) Urine Squamous Epithelial Cells Few /LPF Urine Bacteria 0 /HPF (0-FEW) Urine Mucus Slight /LPF Blood Gas pH 7.42 (7.35-7.45) Blood Gas PCO2 58 mmHg (35-45) Blood Gas PO2 71 mmHg (71-100) Blood Gas HCO3 38 mmol/L (22-26) Arterial Bld O2 Saturation (Calc) 94 % (92-99) FiO2 25 % Test 03/02/19 05:33 White Blood Count 20.6 x10^3/uL (4.0-11.0) Red Blood Count 4.59 x10^6/uL (3.50-5.40) Hemoglobin 12.9 g/dL (12.0-15.5) Hematocrit 40.4 % (36.0-47.0) Mean Corpuscular Volume 88 fL (79-100) Mean Corpuscular Hemoglobin 28 pg (25-35) Mean Corpuscular Hemoglobin Concent 32 g/dL (31-37) Red Cell Distribution Width 13.0 % (11.5-14.5) Platelet Count 289 x10^3/uL (140-400) Sodium Level 143 mmol/L (136-145) Potassium Level 4.4 mmol/L (3.5-5.1) Chloride Level 101 mmol/L (98-107) Carbon Dioxide Level 39 mmol/L (21-32) Anion Gap 3 (6-14) Blood Urea Nitrogen 27 mg/dL (7-20) Creatinine 0.7 mg/dL (0.6-1.0) Estimated GFR (Cockcroft-Gault) 81.8 BUN/Creatinine Ratio 39 (6-20) Glucose Level 134 mg/dL (70-99) Calcium Level 9.1 mg/dL (8.5-10.1) Total Bilirubin 0.3 mg/dL (0.2-1.0) Aspartate Amino Transf (AST/SGOT) 11 U/L (15-37) Alanine Aminotransferase (ALT/SGPT) 15 U/L (14-59) Alkaline Phosphatase 66 U/L (46-116) Total Protein 6.8 g/dL (6.4-8.2) Albumin 3.3 g/dL (3.4-5.0) Albumin/Globulin Ratio 0.9 (1.0-1.7) Medications Current Medications Albuterol/ Ipratropium (Duoneb) 3 ml 1X ONCE NEB Last administered on at 11:27; Start 02/28/19 at 11:30; Stop 02/28/19 at 11:40; Status DC Methylprednisolone Sodium Succinate (SOLU-Medrol 125MG VIAL) 125 mg 1X ONCE IV Last administered on 02/28/19at 11:27; Start 02/28/19 at 11:30; Stop 02/28/19 at 11:40; Status DC Albuterol Sulfate (Ventolin) 10 mg 1X ONCE CONT NEB Last administered on at 12:02; Start 02/28/19 at 12:30; Stop 02/28/19 at 12:31; Status DC Aspirin (Children'S Aspirin) 324 mg 1X ONCE PO Last administered on 02/28/19at 12:13; Start 02/28/19 at 12:30; Stop 02/28/19 at 12:31; Status DC Ondansetron HCl (Zofran) 4 mg 1X ONCE IV Last administered on 02/28/19at 12:23; Start 02/28/19 at 12:45; Stop 02/28/19 at 12:46; Status DC Ondansetron HCl (Zofran) 4 mg PRN Q4HRS PRN IV NAUSEA/VOMITING; Start 02/28/19 at 12:30; Stop 03/01/19 at 12:29; Status DC Morphine Sulfate (Morphine 4mg Syringe) 2 mg PRN Q2HR PRN IV PAIN; Start at 12:30; Stop 03/01/19 at 12:29; Status DC Acetaminophen (Tylenol) 650 mg PRN Q4HRS PRN PO FEVER; Start 02/28/19 at 12:30; Stop 03/01/19 at 12:29; Status DC Nitroglycerin (Nitrostat) 0.4 mg PRN Q5MIN PRN SL CHEST PAIN; Start 02/28/19 at 12:30; Stop 03/01/19 at 12:29; Status DC Albuterol/ Ipratropium (Duoneb) 3 ml RTQID NEB ; Start 02/28/19 at 16:00; Stop at 16:06; Status DC Vitamin D (Vitamin D3) 1,000 unit DAILY PO Last administered on 03/01/19 08:55 ; Start 03/01/19 at 09:00 Levothyroxine Sodium (Synthroid) 50 mcg DAILY06 PO Last administered on 05:54; Start 03/01/19 at 06:00 Losartan Potassium (Cozaar) 100 mg DAILY PO Last administered on 03/01/19 08:53 ; Start 03/01/19 at 09:00 Multivitamins/ Calcium (Thera-M Plus) 1 tab DAILY PO Last administered on 08:55; Start 03/01/19 at 09:00 Multivitamins/ Minerals (I-Radha) 1 tab DAILY PO Last administered on 03/01/19 08:53; Start 03/01/19 at 09:00 Hydrochlorothiazide (Microzide) 12.5 mg DAILY PO Last administered on 03/01/19 08:54; Start 03/01/19 at 09:00 Albuterol/ Ipratropium (Duoneb) 3 ml RTQID NEB Last administered on 03/02/19 05 :43; Start 02/28/19 at 16:00 Albuterol Sulfate (Ventolin) 2.5 mg Q2H PRN NEB SHORTNESS OF BREATH; Start 02/28 at 16:00 Montelukast Sodium (Singulair) 10 mg QHS PO Last administered on 03/01/19 20:38 ; Start 02/28/19 at 21:00 Guaifenesin (Mucinex Er) 600 mg BID PO Last administered on 03/01/19 20:38; Start 02/28/19 at 21:00 Doxycycline Hyclate (Vibra-Tab) 100 mg BID PO Last administered on 03/01/19 20: 38; Start 02/28/19 at 21:00 Methylprednisolone Sodium Succinate (SOLU-Medrol 125MG VIAL) 62.5 mg Q6HRS IV Last administered on 03/02/19at 05:54; Start 02/28/19 at 18:00 Lactobacillus Rhamnosus (Culturelle) 1 cap BID PO Last administered on at 20:38; Start 02/28/19 at 21:00 Active Scripts Active Reported Vitamin D (Cholecalciferol (Vitamin D3)) 1,000 Unit Capsule 1 Cap PO DAILY Preservision Areds Softgel (Vit A/Vit C/Vit E/Zinc/Copper) 1 Each Capsule 1 Each PO DAILY LAST DOSE GIVEN: DATE: TIME: NEXT DOSE DUE: DATE: TIME: Multi-Vitamin Daily (Multivitamin) 1 Each Tablet 1 Each PO DAILY LAST DOSE GIVEN: DATE: TIME: NEXT DOSE DUE: DATE: TIME: Losartan-Hctz 100-12.5 Mg Tab (Losartan/Hydrochlorothiazide) 1 Each Tablet 1 Tab PO DAILY LAST DOSE GIVEN: DATE: TIME: NEXT DOSE DUE: DATE: TIME: Levothyroxine Sodium 50 Mcg Tablet 1 Tab PO DAILY LAST DOSE GIVEN: DATE: TIME: NEXT DOSE DUE: DATE: TIME: Vitals/I & O Vital Sign - Last 24 Hours 03/01/19 03/01/19 03/01/19 03/01/19 08:53 09:00 10:00 10:33 Pulse 80 100 84 Resp 17 B/P (MAP) 117/62 134/81 (98) 116/67 (83) Pulse Ox 92 91 98 O2 Delivery BiPAP/CPAP BiPAP/CPAP BiPAP/CPAP 03/01/19 03/01/19 03/01/19 03/01/19 11:09 12:00 12:10 13:09 Pulse 105 88 Resp 22 20 B/P (MAP) 135/79 (97) 102/65 (77) 115/63 (80) Pulse Ox 92 94 96 O2 Delivery Nasal Cannula Nasal Cannula Bi-pap Nasal Cannula 03/01/19 03/01/19 03/01/19 03/01/19 14:00 15:09 16:05 16:13 Temp 98.3 Pulse 88 96 93 Resp 29 17 B/P (MAP) 90/61 (71) 117/53 (74) 112/65 (81) Pulse Ox 94 95 O2 Delivery Nasal Cannula Nasal Cannula Bi-pap O2 Flow Rate 3.0 4/07/1203/01/19 03/01/19 03/01/19 16:50 17:09 18:09 19:09 Pulse 102 101 94 Resp 22 23 23 B/P (MAP) 102/63 (76) 114/56 (75) 108/58 (75) Pulse Ox 94 95 95 96 O2 Delivery Nasal Cannula Nasal Cannula Nasal Cannula Nasal Cannula O2 Flow Rate 4.0 3.0 3.0 3.0 03/01/19 03/01/19 03/01/19 03/01/19 19:39 20:00 20:34 20:39 Temp 98.1 Pulse 91 105 Resp 16 25 B/P (MAP) 116/70 (85) 126/74 (91) Pulse Ox 98 97 91 O2 Delivery Nasal Cannula Nasal Cannula Nasal Cannula Nasal Cannula O2 Flow Rate 3.0 3.0 4.0 2.0 03/01/19 03/01/19 03/01/19 03/01/19 21:41 22:38 23:45 23:54 Temp 98.3 Pulse 97 90 86 Resp 20 19 B/P (MAP) 110/70 (83) 112/55 (74) 125/63 (83) Pulse Ox 93 95 95 O2 Delivery Nasal Cannula Nasal Cannula Nasal Cannula Nasal Cannula O2 Flow Rate 2.5 2.0 1.5 1.0 03/02/19 03/02/19 03/02/19 03/02/19 00:39 01:41 02:45 03:42 Pulse 86 85 88 77 Resp 14 19 B/P (MAP) 105/69 (81) 113/69 (84) 115/63 (80) 101/54 (70) Pulse Ox 96 93 94 95 O2 Delivery Nasal Cannula Nasal Cannula Nasal Cannula Nasal Cannula O2 Flow Rate 1.0 1.0 1.0 0.5 03/02/19 03/02/19 03/02/19 03/02/19 04:39 05:43 06:00 06:00 Temp 98.5 Pulse 90 Resp 21 B/P (MAP) 108/64 (79) Pulse Ox 93 96 O2 Delivery Nasal Cannula Nasal Cannula Nasal Cannula O2 Flow Rate 0.5 4.0 1.0 03/02/19 06:20 Pulse 93 B/P (MAP) 123/71 (88) Intake and Output 03/01/19 03/01/19 03/02/19 15:00 23:00 07:00 Intake Total 240 ml 1150 ml 150 ml Output Total 500 ml 775 ml 500 ml Balance -260 ml 375 ml -350 ml RENETTA MANDUJANO LAYOUT OPERATOR Mar 02, 2019 08:44
[2019-03-02] MEDS: MULTIVITAMIN I-VITE TABLET. PO SCH (09:02)
[2019-03-02] MEDS: hydroCHLOROthiazide 12.5 MG CAPSULE PO SCH (09:02)
[2019-03-02] MEDS: ASPIRIN ENTERIC COATED 81 MG TABLET.DR. PO SCH (09:03)
[2019-03-02] MEDS: MULTIVITAMIN with MINERAL TABLET. PO SCH (09:03)
[2019-03-02] MEDS: LOSARTAN 50 MG TABLET. PO SCH (09:03)
[2019-03-02] MEDS: LACTOBACILLUS RHAMNOSUS GG 1 CAPSULE. PO SCH ×2 (09:03→21:19)
[2019-03-02] MEDS: DOXYCYCLINE HYCLATE 100 MG TABLET PO SCH ×2 (09:03→21:19)
[2019-03-02] MEDS: CHOLECALCIFEROL (VITAMIN D3) 1,000 UNIT TABLET PO SCH (09:03)
[2019-03-02 10:15] LABS: BGAS PH 7.37 (7.35-7.45)
--- NOTE | 2019-03-02 10:33 | NUR ---
Dr. Quiroz aware of patients status and current ABGS, critical PCO2 62. Physician stated that he would be here shortly to discuss with patient on plan of care. Daughter at bedside at this time, patient states she is feeling much better today but realizes that her COPD is getting much worse. Currently sees a yard rigger with [facility] but stated that she would like to see a new one and go to [facility].
--- NOTE | 2019-03-02 15:40 | NUR ---
Plan is to stay one more night and DC tomorrow with pulmonary followup. Spoke with RT and automobile service station manager, plan is to set up patient for a trilogy to see if she would qualify. Pt doing well at this time, resting in bed and denies complaints.
--- NOTE | 2019-03-02 17:40 | PN ---
DATE: 03/02/2019 SUBJECTIVE: The patient is sitting, slightly propped up in bed, in no apparent respiratory distress. She is feeling generally much better. Slept very well on 2 liters of oxygen by nasal cannula. We did repeat her blood gases this morning and it did show that her pH was within normal range at 7.37, pCO2 of 62, pO2 73, and bicarbonate was 36 and oxygen saturation was 93%. PHYSICAL EXAMINATION: GENERAL: When I examined her, she looked well and cachectic, but there is no pallor, jaundice, cyanosis, or thyromegaly. No jugular venous distension. No limb edema. VITAL SIGNS: Her heart rate was 114, blood pressure was 139/76, temperature was 98.5, respiratory rate was 19 and oxygen saturation was 92% on 2 liters of oxygen by nasal cannula. HEAD, EYES, EARS, NOSE AND THROAT: Showed normocephalic, atraumatic. NECK: Supple. HEART: Showed normal first and second heart sounds with no gallop or murmur. CHEST: Shows central trachea, equally reduced expansion, reduced air entry, diminished with air entry bilaterally. I could not really appreciate any crepitation or rhonchi. ABDOMEN: Slightly distended, soft, nontender. NEUROLOGIC: She is awake, alert, responding appropriately. All cranial nerves are intact. She moves extremities without difficulty. She normally ambulates without assistance or assistive devices. Her intake and output were incompletely recorded. LABORATORY DATA: Her lab work this morning showed a white cell count 20,600, hemoglobin 12.9, hematocrit 40, MCV 88 and platelet count 289,000. Her chemistry showed a serum sodium 143, potassium 4.4, chloride 101, bicarbonate 39, anion gap of 3, BUN 27, creatinine was 0.7, estimated GFR was 82 mL per minute. Her glucose was 134, calcium was 9.1. Total bilirubin, AST, ALT, alkaline phosphatase were normal. Total protein was 6.8, albumin was 3.3. Her serum triglycerides were 44, total cholesterol was 221, LDL cholesterol was 137, VLDL was 8, and HDL cholesterol was 76, the ratio was 2. Her TSH was 0.338. She has 3 sets of cardiac enzymes, showed troponin to be elevated at 0.201, 0.213 and 0.218. She has had an echocardiogram done, which basically showed that her left ventricular systolic function is normal and ejection fraction is within normal range. The ejection fraction is 60-65%. There is normal left ventricular segmental wall motion. The ascending aorta is mildly dilated at 3.4 cm. ASSESSMENT: 1. [id number] hypoxic hypercapnic respiratory failure, much improved. She is now on 2 liters of oxygen with blood gases compensated. pH of 7.37, pCO2 of 62. 2. Non-ST segment elevation myocardial infarction, probably demand mediated. She has normal left ventricular systolic function, normal wall motion by echocardiogram. The patient was started on aspirin. 3. Hyperlipidemia for which she was started on statins. 4. Hypertension, well controlled. 5. Chronic obstructive pulmonary disease. PLAN: I will cut down her steroids to 3 times a day and meanwhile, we will continue with all other medication. I have also checked her T3, T4, free T4 as she might be thyrotoxic. HELIO BANGURA MD DR: MARINE/yosef JOB#: [id number] / [id number]
[2019-03-02] MEDS ORDERED: ATORVASTATIN CALCIUM 20 MG TABLET PO SCH (21:00)
[2019-03-02] MEDS: MONTELUKAST 10 MG TABLET. PO SCH (21:19)
[2019-03-03 00:40] VITALS: BP 116/71
[2019-03-03 02:45] VITALS: BP 106/57
[2019-03-03 04:43] VITALS: BP 121/73
[2019-03-03] MEDS: IPRATRPIUM/ALBUTEROL 0.5/2.5MG 3 ML NEBU. NEB SCH ×2 (05:07→09:07)
[2019-03-03] MEDS: methylPREDNISolone SOD SUCC PF 125 MG/2 ML VIAL. IV SCH (06:01)
[2019-03-03] MEDS: LEVOTHYROXINE 50 MCG TABLET PO SCH (06:01)
[2019-03-03 06:23] LABS: HEMATOCRIT 41.9 % (36.0-47.0); HEMOGLOBIN 13.7 g/dL (12.0-15.5); RED BLOOD COUNT 4.78 x10^6/uL (3.50-5.40); RED CELL DISTRIBUTION WIDTH 13.3 % (11.5-14.5); WHITE BLOOD COUNT 20.2 x10^3/uL (4.0-11.0)
[2019-03-03 06:33] LABS: CALCIUM 9.5 mg/dL (8.5-10.1); CREATININE 0.8 mg/dL (0.6-1.0); GFR 70.1; POTASSIUM 4.9 mmol/L (3.5-5.1)
[2019-03-03 06:38] VITALS: BP 144/67
[2019-03-03] MEDS: hydroCHLOROthiazide 12.5 MG CAPSULE PO SCH (08:18)
[2019-03-03] MEDS: ASPIRIN ENTERIC COATED 81 MG TABLET.DR. PO SCH (08:18)
[2019-03-03] MEDS: CHOLECALCIFEROL (VITAMIN D3) 1,000 UNIT TABLET PO SCH (08:18)
[2019-03-03] MEDS: LOSARTAN 50 MG TABLET. PO SCH (08:19)
[2019-03-03] MEDS: LACTOBACILLUS RHAMNOSUS GG 1 CAPSULE. PO SCH (08:19)
[2019-03-03] MEDS: MULTIVITAMIN with MINERAL TABLET. PO SCH (08:19)
[2019-03-03] MEDS: DOXYCYCLINE HYCLATE 100 MG TABLET PO SCH (08:19)
[2019-03-03] MEDS: MULTIVITAMIN I-VITE TABLET. PO SCH (08:20)
[2019-03-03 09:00] VITALS: BP 149/72
[2019-03-03] MEDS ORDERED: IOHEXOL 350 MG/ML 100 ML VIAL. IV ONE ×2 (10:30→12:30)
--- NOTE | 2019-03-03 11:50 | PDOC ---
PROGRESS NOTES Diagnosis Problem Problems Medical Problems: (1) COPD exacerbation Status: Acute (2) NSTEMI (non-ST elevated myocardial infarction) Status: Acute Assessment Problems Medical Problems: (1) COPD exacerbation Status: Acute (2) NSTEMI (non-ST elevated myocardial infarction) Status: Acute 1. NSTEMI - demand mediated. . Angina free. Normal LV function and wall motion by echo. Continue aspirin. No beta berlin due to COPD. Plan for MPI when acute respiratory issues have stabilized. 2. Acute on chronic hypercapnic respiratory failure - overall improved, remains on 2 liters NC oxygen with 93% SaO2 at rest. desaturates with only minimal activity. 88% this am with conversation. CT chest pending. 3. Hypertension - fair control. add hydralazine. 4. pre renal azotemia - hold HCTZ. 5. dyslipidemia - continue statin. re-check lipids in 6-8 weeks. Subjective continues to become more short of breath with minimal exertion. planning to transfer care from [facility] pulmonology to [facility]. no chest pain, no lightheadedness or syncope, no palpitations Objective Vital Signs Date Time Temp Pulse Resp B/P (MAP) Pulse Ox O2 Delivery O2 Flow Rate FiO2 03/03/19 09:07 90 Nasal Cannula 1.5 03/03/19 09:00 90 28 149/72 (97) 03/03/19 06:10 98.5 Intake and Output 03/03/19 06:59 Intake Total 960 ml Balance 960 ml Intake Oral 960 ml # Voids 2 Physical Exam gen: A+Ox3, mild increase in dyspnea with conversation. CV: RRR, no gallops, clicks or rubs Lungs: diminished throughout abd: + bowel sounds Ext: no significant edema Review of Relevant I have reviewed the following items erlin (where applicable) has been applied. Labs Laboratory Tests Test 03/02/19 05:33 03/02/19 10:00 03/03/19 05:40 White Blood Count 20.6 x10^3/uL (4.0-11.0) 20.2 x10^3/uL (4.0-11.0) Red Blood Count 4.59 x10^6/uL (3.50-5.40) 4.78 x10^6/uL (3.50-5.40) Hemoglobin 12.9 g/dL (12.0-15.5) 13.7 g/dL (12.0-15.5) Hematocrit 40.4 % (36.0-47.0) 41.9 % (36.0-47.0) Mean Corpuscular Volume 88 fL (79-100) 88 fL (79-100) Mean Corpuscular Hemoglobin 28 pg (25-35) 29 pg (25-35) Mean Corpuscular Hemoglobin Concent 32 g/dL (31-37) 33 g/dL (31-37) Red Cell Distribution Width 13.0 % (11.5-14.5) 13.3 % (11.5-14.5) Platelet Count 289 x10^3/uL (140-400) 329 x10^3/uL (140-400) Sodium Level 143 mmol/L (136-145) 140 mmol/L (136-145) Potassium Level 4.4 mmol/L (3.5-5.1) 4.9 mmol/L (3.5-5.1) Chloride Level 101 mmol/L (98-107) 99 mmol/L (98-107) Carbon Dioxide Level 39 mmol/L (21-32) 38 mmol/L (21-32) Anion Gap 3 (6-14) 3 (6-14) Blood Urea Nitrogen 27 mg/dL (7-20) 27 mg/dL (7-20) Creatinine 0.7 mg/dL (0.6-1.0) 0.8 mg/dL (0.6-1.0) Estimated GFR (Cockcroft-Gault) 81.8 70.1 BUN/Creatinine Ratio 39 (6-20) Glucose Level 134 mg/dL (70-99) 120 mg/dL (70-99) Calcium Level 9.1 mg/dL (8.5-10.1) 9.5 mg/dL (8.5-10.1) Total Bilirubin 0.3 mg/dL (0.2-1.0) Aspartate Amino Transf (AST/SGOT) 11 U/L (15-37) Alanine Aminotransferase (ALT/SGPT) 15 U/L (14-59) Alkaline Phosphatase 66 U/L (46-116) Total Protein 6.8 g/dL (6.4-8.2) Albumin 3.3 g/dL (3.4-5.0) Albumin/Globulin Ratio 0.9 (1.0-1.7) Blood Gas pH 7.37 (7.35-7.45) Blood Gas PCO2 62 mmHg (35-45) Blood Gas PO2 73 mmHg (71-100) Blood Gas HCO3 36 mmol/L (22-26) Arterial Bld O2 Saturation (Calc) 93 % (92-99) FiO2 28 % Medications Current Medications Albuterol/ Ipratropium (Duoneb) 3 ml 1X ONCE NEB Last administered on at 11:27; Start 02/28/19 at 11:30; Stop 02/28/19 at 11:40; Status DC Methylprednisolone Sodium Succinate (SOLU-Medrol 125MG VIAL) 125 mg 1X ONCE IV Last administered on 02/28/19at 11:27; Start 02/28/19 at 11:30; Stop 02/28/19 at 11:40; Status DC Albuterol Sulfate (Ventolin) 10 mg 1X ONCE CONT NEB Last administered on at 12:02; Start 02/28/19 at 12:30; Stop 02/28/19 at 12:31; Status DC Aspirin (Children'S Aspirin) 324 mg 1X ONCE PO Last administered on 02/28/19at 12:13; Start 02/28/19 at 12:30; Stop 02/28/19 at 12:31; Status DC Ondansetron HCl (Zofran) 4 mg 1X ONCE IV Last administered on 02/28/19at 12:23; Start 02/28/19 at 12:45; Stop 02/28/19 at 12:46; Status DC Ondansetron HCl (Zofran) 4 mg PRN Q4HRS PRN IV NAUSEA/VOMITING; Start 02/28/19 at 12:30; Stop 03/01/19 at 12:29; Status DC Morphine Sulfate (Morphine 4mg Syringe) 2 mg PRN Q2HR PRN IV PAIN; Start at 12:30; Stop 03/01/19 at 12:29; Status DC Acetaminophen (Tylenol) 650 mg PRN Q4HRS PRN PO FEVER; Start 02/28/19 at 12:30; Stop 03/01/19 at 12:29; Status DC Nitroglycerin (Nitrostat) 0.4 mg PRN Q5MIN PRN SL CHEST PAIN; Start 02/28/19 at 12:30; Stop 03/01/19 at 12:29; Status DC Albuterol/ Ipratropium (Duoneb) 3 ml RTQID NEB ; Start 02/28/19 at 16:00; Stop at 16:06; Status DC Vitamin D (Vitamin D3) 1,000 unit DAILY PO Last administered on 03/03/19 08:18 ; Start 03/01/19 at 09:00 Levothyroxine Sodium (Synthroid) 50 mcg DAILY06 PO Last administered on 06:01; Start 03/01/19 at 06:00 Losartan Potassium (Cozaar) 100 mg DAILY PO Last administered on 03/03/19 08: 19; Start 03/01/19 at 09:00 Multivitamins/ Calcium (Thera-M Plus) 1 tab DAILY PO Last administered on 08:19; Start 03/01/19 at 09:00 Multivitamins/ Minerals (I-Radha) 1 tab DAILY PO Last administered on 03/03/19 08:20; Start 03/01/19 at 09:00 Hydrochlorothiazide (Microzide) 12.5 mg DAILY PO Last administered on 08:18; Start 03/01/19 at 09:00; Status Future Hold Albuterol/ Ipratropium (Duoneb) 3 ml RTQID NEB Last administered on 03/03/19at 09:07; Start 02/28/19 at 16:00 Albuterol Sulfate (Ventolin) 2.5 mg Q2H PRN NEB SHORTNESS OF BREATH; Start 02/28 at 16:00 Montelukast Sodium (Singulair) 10 mg QHS PO Last administered on 03/02/19 21:19 ; Start 02/28/19 at 21:00 Guaifenesin (Mucinex Er) 600 mg BID PO Last administered on 03/03/19 08:18; Start 02/28/19 at 21:00 Doxycycline Hyclate (Vibra-Tab) 100 mg BID PO Last administered on 03/03/19 08 :19; Start 02/28/19 at 21:00 Methylprednisolone Sodium Succinate (SOLU-Medrol 125MG VIAL) 62.5 mg Q6HRS IV Last administered on 03/02/19at 05:54; Start 02/28/19 at 18:00; Stop 03/02/19 at 11: 19; Status DC Lactobacillus Rhamnosus (Culturelle) 1 cap BID PO Last administered on at 08:19; Start 02/28/19 at 21:00 Aspirin (Aspirin Enteric Coated) 81 mg DAILYWBKFT PO Last administered on at 08:18; Start 03/02/19 at 08:45 Atorvastatin Calcium (Lipitor) 40 mg QHS PO Last administered on 03/02/19at 21:19 ; Start 03/02/19 at 21:00 Methylprednisolone Sodium Succinate (SOLU-Medrol 125MG VIAL) 62.5 mg Q8H IV Last administered on 03/03/19at 06:01; Start 03/02/19 at 14:00 Hydralazine HCl (Apresoline) 25 mg BID PO ; Start 03/03/19 at 21:00 Iohexol (Omnipaque 350 Mg/ml) 100 ml 1X ONCE IV ; Start 03/03/19 at 10:30; Stop 03/03/19 at 10:31; Status DC Active Scripts Active Reported Vitamin D (Cholecalciferol (Vitamin D3)) 1,000 Unit Capsule 1 Cap PO DAILY Preservision Areds Softgel (Vit A/Vit C/Vit E/Zinc/Copper) 1 Each Capsule 1 Each PO DAILY LAST DOSE GIVEN: DATE: TIME: NEXT DOSE DUE: DATE: TIME: Multi-Vitamin Daily (Multivitamin) 1 Each Tablet 1 Each PO DAILY LAST DOSE GIVEN: DATE: TIME: NEXT DOSE DUE: DATE: TIME: Losartan-Hctz 100-12.5 Mg Tab (Losartan/Hydrochlorothiazide) 1 Each Tablet 1 Tab PO DAILY LAST DOSE GIVEN: DATE: TIME: NEXT DOSE DUE: DATE: TIME: Levothyroxine Sodium 50 Mcg Tablet 1 Tab PO DAILY LAST DOSE GIVEN: DATE: TIME: NEXT DOSE DUE: DATE: TIME: Vitals/I & O Vital Sign - Last 24 Hours 03/02/19 03/02/19 03/02/19 03/02/19 13:40 14:16 14:40 15:10 Temp 98.2 Pulse 101 124 Resp 19 19 B/P (MAP) 124/65 (84) 131/63 (85) Pulse Ox 93 93 91 O2 Delivery Nasal Cannula Nasal Cannula Nasal Cannula O2 Flow Rate 1.5 1.5 1.5 03/02/19 03/02/19 03/02/19 03/02/19 16:49 16:50 19:17 20:12 Temp 98.8 Pulse 93 103 Resp 19 14 B/P (MAP) 111/66 (81) 165/76 (105) Pulse Ox 94 93 93 O2 Delivery Nasal Cannula Nasal Cannula Nasal Cannula Nasal Cannula O2 Flow Rate 1.5 1.5 1.5 2.0 03/02/19 03/02/19 03/02/19 03/02/19 20:13 21:16 22:33 22:42 Temp 98.2 Pulse 84 Resp 18 B/P (MAP) 146/69 (94) 139/72 (94) Pulse Ox 97 98 O2 Delivery Nasal Cannula BiPAP/CPAP BiPAP/CPAP O2 Flow Rate 2.0 03/02/19 03/03/19 03/03/19 03/03/19 23:00 00:40 02:45 04:43 Temp 98.2 Pulse 69 76 70 Resp 17 20 18 B/P (MAP) 116/71 (86) 106/57 (73) 121/73 (89) Pulse Ox 97 96 95 O2 Delivery Bi-pap BiPAP/CPAP BiPAP/CPAP BiPAP/CPAP 03/03/19 03/03/19 03/03/19 03/03/19 05:06 06:10 06:10 06:38 Temp 98.5 Pulse 91 Resp 15 B/P (MAP) 144/67 (92) Pulse Ox 94 93 O2 Delivery BiPAP/CPAP Nasal Cannula Nasal Cannula O2 Flow Rate 2.0 2.0 03/03/19 03/03/19 03/03/19 03/03/19 08:00 08:19 09:00 09:07 Pulse 101 90 Resp 28 B/P (MAP) 149/72 (97) Pulse Ox 93 90 O2 Delivery Nasal Cannula Nasal Cannula Nasal Cannula O2 Flow Rate 2.0 2.0 1.5 Intake and Output 03/02/19 03/02/19 03/03/19 14:59 22:59 06:59 Intake Total 480 ml 480 ml 0 ml Balance 480 ml 480 ml 0 ml RENETTA MANDUJANO [employer]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
--- NOTE | 2019-03-03 13:13 | RAD ---
Examination: CT ANGIOGRAPHY CHEST History: SHORT OF AIR WITH ANY ACTIVITY RIGHT AC OMNIPAQUE 350 75 CC Comparison/Correlation: None Findings: Axial images of chest were obtained following IV contrast according to pulmonary arteriography protocol. Sagittal and coronal reformatted images provided. MIP images provided. Excellent opacification of the pulmonary arterial vasculature and the thoracic aorta noted. Pulmonary arterial vasculature is normal with no thromboembolic disease. No infiltrates. Calcified granulomas are present. Calcified hilar lymph nodes are evident. Thoracic aorta is unremarkable. Bovine aortic arch noted. No suspicious pulmonary nodules or masses. No pleural or pericardial effusion. No pneumothorax. Pulmonary hyperinflation evident. Mild bronchial wall thickening of the lower lobes noted. There are 2 left renal arteries. Celiac and superior mesenteric arteries are widely patent. No significant renal arterial stenosis. Approximately 50 percent stenosis of the nondominant lower left renal artery noted. Gallbladder is not identified. Impression: No pulmonary arterial thromboembolic disease. COPD. No infiltrate. PQRS Compliance Statement: One or more of the following individualized dose reduction techniques were utilized for this examination: 1. Automated exposure control 2. Adjustment of the mA and/or kV according to patient size 3. Use of iterative reconstruction technique Electronically signed by: Ruben Irby MD (03/03/2019 1:10 PM) [facility]
[2019-03-03 14:00] VITALS: BP 150/64
--- NOTE | 2019-03-03 14:57 | NUR ---
Pt dc to [facility] room 210. PT is able to verbalize understanding of transfer and patient daughter. Report given to Umer at [facility] and Roberto with EMS. Both verbalized understanding of transfer orders. Pt left via EMS cart with [employer] and belongings. Daughter took home O2 neb with her and extra battery. Yajaira ANDINO
--- NOTE | 2019-03-03 15:53 | DS ---
DATE OF DISCHARGE: 03/03/2019 HISTORY OF PRESENT ILLNESS: This patient is a 73-year-old female patient, who was admitted through the Emergency Room of [facility] on 02/28/2019 with increasing shortness of breath that has been going on for the last 2 days, she also has some upper abdominal pain, generalized weakness, increased shortness of breath with exertion. The patient is so weak, she is unable to walk. She does have a history of chronic obstructive pulmonary disease and is normally on 2 to 2-1/2 liters of oxygen a minute. She increased her oxygen to 3 liters with continued shortness of breath and inability to walk. She denied any chest pain. Denied any chills, rigors, or fever. She was evaluated in the Emergency Room. LABORATORY DATA: Her lab work was mostly unremarkable. Her chest x-ray showed hyperinflated lungs with no focal airspace disease, remote granulomatous disease and normal pulmonary vasculature. No pleural effusion or pneumothorax. She was started on IV steroids and inhalers and on the second day, I did actually blood gases that showed that she was in acute hypoxic hypercapnic respiratory failure. Her arterial blood gas with a pH of 7.31, pCO2 of 81, pO2 79, bicarbonate was 40 and oxygen saturation was 93% on FiO2 of 36%. We did start her on BiPAP and did well and as of yesterday, her blood gas showed a pH of 7.37, pCO2 of 62, pO2 73, bicarbonate 36, and oxygen saturation was 93% on FiO2 28%. HOSPITAL COURSE: The patient continued to complain of shortness of breath and she desaturates dramatically on minimal exertion. We did actually do a CT angio of the chest, which only showed pulmonary hyperinflation, mild bronchial wall thickening of the lower lobes, but no evidence of pulmonary arterial thromboembolic disease as the patient continued to desaturate dramatically with minimal exertion. A decision was made to transfer her to [facility] to consult the ship yard electrical person to assist with her rare management. PHYSICAL EXAMINATION: GENERAL: When I saw her today, she was sitting on the edge of the bed comfortably, in no apparent respiratory distress. No pallor, jaundice, cyanosis, or thyromegaly. No jugular venous distension. No lower limb edema. VITAL SIGNS: Her heart rate was 90, blood pressure was 149/72, temperature was 98.5, respiratory rate was 18 and oxygen saturation was 90% on 1-1/2 liters of oxygen by nasal cannula. HEAD, EYES, EARS, NOSE AND THROAT: Showed normocephalic, atraumatic. NECK: Supple. HEART: Showed normal first and second heart sounds with no gallop, rub or murmur. CHEST: Showed central trachea, equally reduced expansion, reduced air entry, vesicular breath sounds. I could not really appreciate any crepitation or rhonchi. ABDOMEN: Slightly distended, soft, nontender. NEUROLOGIC: She is awake, alert, responding appropriately. All her cranial nerves intact. She moves extremities without difficulty, although she is mostly bed bound, has any even minimal exertion causes her oxygen saturation to drop down to less than 85%. LABORATORY DATA: Her lab work this morning showed a white cell count of 20,000, hemoglobin 13.7, hematocrit 42, MCV 88 and platelet count 329,000. Her chemistry showed a serum sodium 140, potassium 4.9, chloride 99, bicarbonate 38, anion gap of 3, BUN 27, creatinine was 0.8, estimated GFR was 70 mL per minute. Her glucose was 120, calcium was 9.5. Her prothrombin time was 9.5, INR of 1. Her nasal screen for MRSA by PCR was negative. DISCHARGE MEDICATIONS: She will be transferred to [facility] on hydralazine 25 mg twice a day, atorvastatin calcium 40 mg at bedtime, methylprednisolone 62.5 mg every 8 hours, aspirin 81 mg once a day, multivitamin 1 tablet once a day, losartan potassium 100 mg once a day, vitamin D 1000 international unit once a day, levothyroxine sodium 50 mcg daily, lactobacillus rhamnosus 1 capsule twice a day, doxycycline 100 mg twice a day, guaifenesin 600 mg twice a day, Singulair 10 mg at bedtime, albuterol sulfate 2.5 mg 3 mL by nebulizer every 2 hours and DuoNeb 4 times a day. FINAL DISCHARGE DIAGNOSES: 1. Acute on chronic hypoxic hypercapnic respiratory failure. 2. Non-ST segment elevation myocardial infarction, likely demand mediated. However, her echocardiogram showed she has normal left ventricular systolic function, normal wall motion by echocardiogram. 3. Hyperlipidemia for which she was on statins. 4. Hypertension, well controlled. 5. Chronic obstructive pulmonary disease. HELIO BANGURA MD DR: Amalia JOB#: [id number] / [id number]
[2019-03-03] MEDS ORDERED: hydrALAZINE 25 MG TABLET PO SCH (21:00)
== END 2019-03-03 15:01 | disposition short-term general hospital (02) | DRG 280 ==
LOC: ER 11:09 → 1 SOUTH 12:15 → ICU 18:14
PROVIDERS: ADMIT Internal Medicine; ATTEND Internal Medicine
PROC: 5A09357 Assistance with Respiratory Ventilation, Less than 24 Consecutive Hours, Continuous Positive Airway Pressure (ICD-10-PCS; principal; 2019-02-28)
PROC: 5A09357 Assistance with Respiratory Ventilation, Less than 24 Consecutive Hours, Continuous Positive Airway Pressure (ICD-10-PCS; 2019-03-01)
PROC: 5A09357 Assistance with Respiratory Ventilation, Less than 24 Consecutive Hours, Continuous Positive Airway Pressure (ICD-10-PCS; 2019-03-02)
DX: I21.4 Non-ST elevation (NSTEMI) myocardial infarction (principal); J96.22 Acute and chronic respiratory failure with hypercapnia; J96.21 Acute and chronic respiratory failure with hypoxia; J44.1 Chronic obstructive pulmonary disease with (acute) exacerbation; E03.9 Hypothyroidism, unspecified; I10 Essential (primary) hypertension; F41.9 Anxiety disorder, unspecified; M19.90 Unspecified osteoarthritis, unspecified site; E78.5 Hyperlipidemia, unspecified; Z90.710 Acquired absence of both cervix and uterus; Z90.49 Acquired absence of other specified parts of digestive tract; Z98.41 Cataract extraction status, right eye; Z98.42 Cataract extraction status, left eye; Z83.3 Family history of diabetes mellitus; Z82.49 Family history of ischemic heart disease and other diseases of the circulatory system; Z87.891 Personal history of nicotine dependence
CPT/HCPCS: 36415; 36600; 71046; 71275; 77063; 77067; 77080; 80048; 80053; 80061; 81001; 82803; 83690; 83735; 83880; 84436; 84439; 84443; 84480; 84484; 85007; 85025; 85027; 85610; 87641; 93005; 93306; 94640; 94660; 94760; J2405; J2930; J7613; J7620; Q9967

== ENCOUNTER 2019-03-08 16:51 | Inpatient (IN) | payer MEDICARE, OTHER ==
[~2019-03-08] VITALS: Ht 165.1 cm; Wt 56.0 kg
[~2019-03-08 16:51] MED LIST changes: +CHOL100013 PO
[2019-03-08 17:08] VITALS: BP 77/43
[2019-03-08 17:42] VITALS: BP 65/37
[2019-03-08] MEDS ORDERED: ATOR40TA59 PO (18:33)
[2019-03-08] MEDS ORDERED: IPRA3AMP29 NEB (18:33)
[2019-03-08] MEDS ORDERED: PRED20TA PO (18:33)
[2019-03-08] MEDS ORDERED: ASPI-612 PO (18:33)
[2019-03-08] MEDS ORDERED: BUDE0.5A3 NEB (18:33)
[2019-03-08] MEDS ORDERED: HYDR-2869 PO (18:33)
[2019-03-08] MEDS ORDERED: PANT40TA5 PO (18:33)
[2019-03-08] MEDS ORDERED: MONT10TA9 PO (18:33)
[2019-03-08] MEDS ORDERED: ALBU2.5V14 NEB (18:33)
[2019-03-08] MEDS ORDERED: GUAI600T47 PO (18:33)
[2019-03-08] MEDS ORDERED: ALBUTEROL SULFATE 2.5 MG/3 ML NEBU. NEB PRN (19:00)
[2019-03-08] MEDS ORDERED: NON FORMULARY ITEM (Albuterol Sulfate (Albuterol Sulfate Conc Neb Soln) 1 VIAL) NEB SCH (20:00)
[2019-03-08] MEDS: BUDESONIDE 0.5 MG/2 ML NEBU NEB SCH (20:00)
[2019-03-08] MEDS: IPRATRPIUM/ALBUTEROL 0.5/2.5MG 3 ML NEBU. NEB SCH (21:00)
[2019-03-08] MEDS ORDERED: NON FORMULARY ITEM (Budesonide (Pulmicort) 1 VIAL) NEB SCH (21:00)
[2019-03-08] MEDS: ATORVASTATIN CALCIUM 20 MG TABLET PO SCH (21:29)
[2019-03-09] MEDS: IPRATRPIUM/ALBUTEROL 0.5/2.5MG 3 ML NEBU. NEB SCH ×4 (05:34→20:10)
[2019-03-09 06:01] VITALS: BP 110/72
[2019-03-09] MEDS: LEVOTHYROXINE 50 MCG TABLET PO SCH (06:14)
[2019-03-09] MEDS: PANTOPRAZOLE 40 MG TABLET. PO SCH (08:44)
[2019-03-09] MEDS: ASPIRIN ENTERIC COATED 81 MG TABLET.DR. PO SCH (08:44)
[2019-03-09] MEDS: MULTIVITAMIN I-VITE TABLET. PO SCH (08:44)
[2019-03-09] MEDS: CHOLECALCIFEROL (VITAMIN D3) 1,000 UNIT TABLET PO SCH (08:44)
[2019-03-09] MEDS: MONTELUKAST 10 MG TABLET. PO SCH (08:45)
[2019-03-09] MEDS: predniSONE 20 MG TABLET PO SCH (08:45)
[2019-03-09] MEDS: MULTIVITAMIN with MINERAL TABLET. PO SCH (08:45)
[2019-03-09] MEDS: hydroCHLOROthiazide 12.5 MG CAPSULE PO SCH (08:46)
[2019-03-09] MEDS: LOSARTAN 50 MG TABLET. PO SCH (08:46)
[2019-03-09] MEDS: BUDESONIDE 0.5 MG/2 ML NEBU NEB SCH ×2 (10:05→20:10)
[2019-03-09 11:03] VITALS: BP 102/63
--- NOTE | 2019-03-09 15:13 | HP ---
ADMIT DATE: 03/08/2019 HISTORY OF PRESENT ILLNESS: The patient is a 73-year-old female patient who was originally admitted to [facility] on 02/28/2019, was transferred to [facility] on 03/03/2019. She was seen in consultation there by the turning sander operator and she was on BiPAP machine, start tapering her steroids and she did generally well and decision was made to admit her to swing bed to continue the process of rehabilitation to get acclimatize to her Trilogy. When I saw her this morning, she looked well and was clearly in no apparent respiratory distress. On questioning her, ____ she had a good night sleep, has had a shower and has participated with physical therapy, she is maintaining adequate saturations 97% on 3 liters oxygen by nasal cannula. PAST MEDICAL HISTORY: 1. Significant for chronic hypoxic hypercapnic respiratory failure. 2. Chronic obstructive pulmonary disease. 3. Non-ST segment elevation myocardial infarction. 4. Hyperlipidemia. 5. Hypertension. PAST SURGICAL HISTORY: Significant for total abdominal hysterectomy, bilateral salpingo-oophorectomy, cholecystectomy, bilateral cataract extraction, and colonoscopy. ALLERGIES: She has no known drug allergies. MEDICATIONS: She was transferred from [facility] to continue on following medications: Ipratropium bromide, albuterol sulfate by nebulizer 4 times a day, albuterol sulfate 2.5 mg every 2 hours as needed, atorvastatin calcium 40 mg at bedtime, hydralazine 50 mg 3 times a day, losartan/hydrochlorothiazide 100/12.5 mg once a day, aspirin 81 mg once a day, Pulmicort 0.5 mg 2 mL by nebulizer twice a day, montelukast 10 mg at bedtime, Mucinex 600 mg twice a day, Protonix 40 mg daily, prednisone 40 mg daily, levothyroxine sodium 50 mcg once a day, cholecalciferol for vitamin D3 2000 once a day, multivitamin 1 tablet once a day, and PreserVision eyelids soft gel 1 tablet once a day. FAMILY HISTORY: The patient has 3 brothers and one brother committed suicide at age 22. The other 2 brothers are alive and healthy. She has 4 sisters, one of them had received liver transplant for end-stage liver disease and one has multiple hernias with infected mesh. The other two sisters are healthy. Her father at age of 71 because of myocardial infarction. Her mother is still alive at the age of 92 and lives at home in her own. SOCIAL HISTORY: She is , lives alone. She has 2 daughters and one son. She quit smoking about 10 years ago. She smoked a pack a day for 25-30 years. She has not had any alcohol for the last 2-3 years. She worked for [employer]. REVIEW OF SYSTEMS: As per history of present illness. PHYSICAL EXAMINATION GENERAL: When I saw her today, she looked well and was clearly in no apparent respiratory distress. No pallor, jaundice, cyanosis, or thyromegaly. No jugular venous distension. No limb edema. VITAL SIGNS: Her heart rate was 91, blood pressure was 102/63, temperature was 97.9, respiratory rate 24, and oxygen saturation was 97% on 3 liters of oxygen by nasal cannula. HEAD, EYES, EARS, NOSE, AND THROAT: Showed normocephalic, atraumatic. NECK: Supple. HEART: Showed normal first and second heart sounds. No gallop, rub, or murmur. CHEST: Shows central trachea, equally reduced expansion, reduced air entry. I could not appreciate any crepitation or rhonchi. ABDOMEN: Slightly distended, soft, nontender. NEUROLOGIC: She is awake, alert, responding appropriately. Cranial nerves intact. She moves extremities without difficulty. She ambulates with a walker. ASSESSMENT AND PLAN: In summary, this is a 73-year-old female patient who was admitted originally with [id number] hypoxic hypercapnic respiratory failure. She has chronic obstructive pulmonary disease. On her last admission, she also had non-ST segment elevation myocardial infarction, felt to be secondary to demand ischemia rather than acute coronary syndrome. Other medical problems include hypertension, hyperlipidemia, hypothyroidism. Plan is to obviously continue with all her current medication. We will taper her steroids slowly. We will consult Physical and Occupational Therapy. We will also consult the reliable sales development representative to teach her how to get adjusted to Trilogy to get used to it, so that she can use successfully at home. Her blood pressure seems to be somewhat on the lower side, so I will cut down some of her antihypertensive medication. I will half the dose of hydralazine to 25 mg 3 times a day and if she continued to be on the lower side, we can ____ discontinue hydrochlorothiazide and cut down the losartan to 50 mg once a day if need be. HELIO BANGURA MD DR: MARINE/yosef JOB#: [id number] / [id number]
[2019-03-09 15:30] VITALS: BP 116/64
[2019-03-09 18:57] VITALS: BP 127/68
[2019-03-09] MEDS: ATORVASTATIN CALCIUM 20 MG TABLET PO SCH (21:00)
[2019-03-09 22:52] VITALS: BP 105/63
[2019-03-10] MEDS: IPRATRPIUM/ALBUTEROL 0.5/2.5MG 3 ML NEBU. NEB SCH ×4 (05:16→19:41)
[2019-03-10] MEDS: BUDESONIDE 0.5 MG/2 ML NEBU NEB SCH ×3 (05:16→19:41)
[2019-03-10 05:41] VITALS: BP 142/81
[2019-03-10] MEDS: LEVOTHYROXINE 50 MCG TABLET PO SCH (05:48)
[2019-03-10 06:59] LABS: HEMATOCRIT 37.3 % (36.0-47.0); HEMOGLOBIN 12.3 g/dL (12.0-15.5); RED BLOOD COUNT 4.27 x10^6/uL (3.50-5.40); RED CELL DISTRIBUTION WIDTH 13.6 % (11.5-14.5); WHITE BLOOD COUNT 13.4 x10^3/uL (4.0-11.0)
[2019-03-10] MEDS: PANTOPRAZOLE 40 MG TABLET. PO SCH (07:24)
[2019-03-10 07:27] LABS: ALBUMIN 2.9 g/dL (3.4-5.0); ALBUMIN/GLOBULIN RATIO 1.1 (1.0-1.7); CALCIUM 8.8 mg/dL (8.5-10.1); CREATININE 0.7 mg/dL (0.6-1.0); GFR 81.8; POTASSIUM 3.3 mmol/L (3.5-5.1); TOTAL BILIRUBIN 0.5 mg/dL (0.2-1.0); TOTAL PROTEIN 5.6 g/dL (6.4-8.2)
[2019-03-10] MEDS: MULTIVITAMIN with MINERAL TABLET. PO SCH (08:50)
[2019-03-10] MEDS: LOSARTAN 50 MG TABLET. PO SCH (08:51)
[2019-03-10] MEDS: hydroCHLOROthiazide 12.5 MG CAPSULE PO SCH (08:51)
[2019-03-10] MEDS: MONTELUKAST 10 MG TABLET. PO SCH (08:51)
[2019-03-10] MEDS: ASPIRIN ENTERIC COATED 81 MG TABLET.DR. PO SCH (08:51)
[2019-03-10] MEDS: CHOLECALCIFEROL (VITAMIN D3) 1,000 UNIT TABLET PO SCH (08:52)
[2019-03-10] MEDS: predniSONE 20 MG TABLET PO SCH (08:52)
[2019-03-10] MEDS: MULTIVITAMIN I-VITE TABLET. PO SCH (08:52)
[2019-03-10 15:07] VITALS: BP 106/65
[2019-03-10 19:25] VITALS: BP 121/71
[2019-03-10] MEDS: ATORVASTATIN CALCIUM 20 MG TABLET PO SCH (21:04)
--- NOTE | 2019-03-10 22:38 | PN ---
DATE: 03/10/2019 SUBJECTIVE: The patient is resting slightly propped up in bed, sleeping comfortably in no apparent distress. On questioning her, she states that her right foot is very swollen that she is unable to fit her right foot into her shoes. However, she denies any pain in her legs, denies any chest pain, denies any hemoptysis. She does have cough and shortness of breath at baseline. PHYSICAL EXAMINATION: GENERAL: When I examined her this afternoon, she looked well and was clearly in no apparent respiratory distress, pale, but no jaundice, cyanosis, or thyromegaly. No jugular venous distention, no limb edema. VITAL SIGNS: Her heart rate was 105, blood pressure was 106/65, temperature was 98.1, respiratory rate 20, and oxygen saturation was 91% on 3 liters of oxygen. The rest of clinical exam is stable. Examination of the right lower extremity compared to the left showed that her right foot is definitely swollen and marked ankle swelling compared to the left foot. LABORATORY DATA: Her lab work this morning showed a white cell count of 13,400, hemoglobin 12, hematocrit 37, MCV 87 and platelet count 275,000. Serum sodium was 140, potassium 3.3, chloride 101, bicarbonate 35, anion gap of 4, BUN 22, creatinine 0.7, estimated GFR was 82 mL per minute. Her glucose was 78. Calcium was 8.8. Total bilirubin and alkaline phosphatase normal. AST and ALT was elevated. Total protein was 5.6, albumin was 2.9. ASSESSMENT: Swollen right lower extremity compared to the left. PLAN: To arrange for her to have a venous Doppler ultrasound. Meanwhile, I will start her on Lovenox 1 mg/kg twice a day until we confirm or refute the possibility of deep vein thrombosis. Other medical problems include: 1. Acute on chronic hypoxic hypercapnic respiratory failure. 2. Chronic obstructive pulmonary disease. 3. Non-ST segment elevation myocardial infarction. 4. Hyperlipidemia. 5. Hypertension. HELIO BANGURA MD DR: MARINE/yosef JOB#: [id number] / [id number]
[2019-03-11] MEDS: IPRATRPIUM/ALBUTEROL 0.5/2.5MG 3 ML NEBU. NEB SCH ×4 (04:20→20:26)
[2019-03-11] MEDS: BUDESONIDE 0.5 MG/2 ML NEBU NEB SCH ×2 (04:21→20:26)
[2019-03-11 04:50] VITALS: BP 111/65
[2019-03-11] MEDS: LEVOTHYROXINE 50 MCG TABLET PO SCH (05:43)
[2019-03-11] MEDS: MULTIVITAMIN I-VITE TABLET. PO SCH (07:55)
[2019-03-11] MEDS: PANTOPRAZOLE 40 MG TABLET. PO SCH (07:55)
[2019-03-11] MEDS: MONTELUKAST 10 MG TABLET. PO SCH (07:56)
[2019-03-11] MEDS: predniSONE 20 MG TABLET PO SCH (07:56)
[2019-03-11] MEDS: CHOLECALCIFEROL (VITAMIN D3) 1,000 UNIT TABLET PO SCH (07:56)
[2019-03-11] MEDS: ASPIRIN ENTERIC COATED 81 MG TABLET.DR. PO SCH (07:56)
[2019-03-11] MEDS: MULTIVITAMIN with MINERAL TABLET. PO SCH (07:58)
--- NOTE | 2019-03-11 07:58 | RAD ---
Right lower extremity venous ultrasound, 03/10/2019 : History: Right leg swelling Duplex evaluation including grayscale, color flow and spectral Doppler analysis was performed. The femoral and popliteal veins show no filling defects to suggest DVT. The visualized deep veins in the right calf are unremarkable. IMPRESSION: There is no sonographic evidence of deep vein thrombosis in the right lower extremity Electronically signed by: Mello Escamilla MD (03/11/2019 7:55 AM) [facility]
[2019-03-11] MEDS: hydroCHLOROthiazide 12.5 MG CAPSULE PO SCH (09:00)
[2019-03-11] MEDS: LOSARTAN 50 MG TABLET. PO SCH (09:00)
[2019-03-11 15:13] VITALS: BP 119/67
[2019-03-11] MEDS ORDERED: POTASSIUM CHLORIDE 20 MEQ TABLET.ER. PO ONE (16:30)
[2019-03-11 18:40] VITALS: BP 131/72
[2019-03-11] MEDS: ATORVASTATIN CALCIUM 20 MG TABLET PO SCH (20:28)
[2019-03-11] MEDS: DOCUSATE SODIUM 100 MG CAPSULE PO SCH (20:28)
[2019-03-12] MEDS: IPRATRPIUM/ALBUTEROL 0.5/2.5MG 3 ML NEBU. NEB SCH ×4 (05:24→20:12)
[2019-03-12] MEDS: LEVOTHYROXINE 50 MCG TABLET PO SCH (05:30)
[2019-03-12 05:49] VITALS: BP 145/73
[2019-03-12 06:30] LABS: CALCIUM 8.7 mg/dL (8.5-10.1); CREATININE 0.8 mg/dL (0.6-1.0); GFR 70.1; POTASSIUM 4.2 mmol/L (3.5-5.1)
[2019-03-12] MEDS: PANTOPRAZOLE 40 MG TABLET. PO SCH (07:27)
[2019-03-12] MEDS: CHOLECALCIFEROL (VITAMIN D3) 1,000 UNIT TABLET PO SCH (08:11)
[2019-03-12] MEDS: LOSARTAN 50 MG TABLET. PO SCH (08:11)
[2019-03-12] MEDS: MULTIVITAMIN with MINERAL TABLET. PO SCH (08:12)
[2019-03-12] MEDS: ASPIRIN ENTERIC COATED 81 MG TABLET.DR. PO SCH (08:12)
[2019-03-12] MEDS: hydroCHLOROthiazide 12.5 MG CAPSULE PO SCH (08:12)
[2019-03-12] MEDS: predniSONE 20 MG TABLET PO SCH (08:12)
[2019-03-12] MEDS: MULTIVITAMIN I-VITE TABLET. PO SCH (08:12)
[2019-03-12] MEDS: MONTELUKAST 10 MG TABLET. PO SCH (08:13)
[2019-03-12] MEDS: POLYETHYLENE GLYCOL 3350 17 GM PACKET. PO SCH (08:16)
[2019-03-12] MEDS: DOCUSATE SODIUM 100 MG CAPSULE PO SCH ×2 (08:16→21:29)
[2019-03-12] MEDS: BUDESONIDE 0.5 MG/2 ML NEBU NEB SCH ×2 (09:24→20:11)
[2019-03-12 19:25] VITALS: BP 129/60
[2019-03-12] MEDS: ATORVASTATIN CALCIUM 20 MG TABLET PO SCH (21:28)
[2019-03-13] MEDS: LEVOTHYROXINE 50 MCG TABLET PO SCH (06:00)
[2019-03-13 08:36] LABS: BASO # 0.1 x10^3/uL (0.0-0.2); BASO % 1 % (0-3); EOS # 0.2 x10^3/uL (0.0-0.7); EOS % 1 % (0-3); HEMATOCRIT 36.6 % (36.0-47.0); HEMOGLOBIN 11.8 g/dL (12.0-15.5); LYMPH # 2.7 x10^3/uL (1.0-4.8); LYMPH % 14 % (24-48); MEAN CORPUSCULAR HEMOGLOBIN 28 pg (25-35); MEAN CORPUSCULAR HGB CONC 32 g/dL (31-37); MEAN CORPUSCULAR VOLUME 87 fL (79-100); MONO # 1.4 x10^3/uL (0.0-1.1); MONO % 7 % (0-9); NEUT # 15.1 x10^3uL (1.8-7.7); NEUT % 78 % (31-73); PLATELET COUNT 364 x10^3/uL (140-400); RED BLOOD COUNT 4.19 x10^6/uL (3.50-5.40); RED CELL DISTRIBUTION WIDTH 13.5 % (11.5-14.5); WHITE BLOOD COUNT 19.5 x10^3/uL (4.0-11.0)
[2019-03-13 08:46] LABS: ALBUMIN 3.3 g/dL (3.4-5.0); ALBUMIN/GLOBULIN RATIO 1.1 (1.0-1.7); CREATININE 0.7 mg/dL (0.6-1.0); GFR 81.8; TOTAL BILIRUBIN 0.3 mg/dL (0.2-1.0); TOTAL PROTEIN 6.2 g/dL (6.4-8.2)
[2019-03-13] MEDS: IPRATRPIUM/ALBUTEROL 0.5/2.5MG 3 ML NEBU. NEB SCH ×2 (09:00→11:42)
[2019-03-13] MEDS: DOCUSATE SODIUM 100 MG CAPSULE PO SCH ×2 (09:00→09:18)
[2019-03-13] MEDS: POLYETHYLENE GLYCOL 3350 17 GM PACKET. PO SCH ×2 (09:00→09:18)
[2019-03-13] MEDS: MULTIVITAMIN I-VITE TABLET. PO SCH (09:16)
[2019-03-13] MEDS: CHOLECALCIFEROL (VITAMIN D3) 1,000 UNIT TABLET PO SCH (09:16)
[2019-03-13] MEDS: LOSARTAN 50 MG TABLET. PO SCH (09:17)
[2019-03-13] MEDS: PANTOPRAZOLE 40 MG TABLET. PO SCH (09:17)
[2019-03-13 09:18] VITALS: BP 129/60
[2019-03-13] MEDS: ASPIRIN ENTERIC COATED 81 MG TABLET.DR. PO SCH (09:18)
[2019-03-13] MEDS: MONTELUKAST 10 MG TABLET. PO SCH (09:18)
[2019-03-13] MEDS: predniSONE 20 MG TABLET PO SCH (09:18)
[2019-03-13] MEDS: MULTIVITAMIN with MINERAL TABLET. PO SCH (09:18)
[2019-03-13] MEDS: hydroCHLOROthiazide 12.5 MG CAPSULE PO SCH (09:18)
[2019-03-13 09:55] LABS: % BANDS 3 % (0-9); % EOS 3 % (0-5); % LYMPHS 16 % (24-48); % MONOS 4 % (0-10); % MYELOS 1 % (0-0); % SEGS 73 % (35-66)
[2019-03-13 09:56] LABS: PLT ESTIMATE INCREASED (ADEQUATE); TOXIC GRANULATION SLIGHT
[2019-03-13 09:57] LABS: POLYCHROMASIA SLIGHT
--- NOTE | 2019-03-13 10:23 | DISCH ---
HOME HEALTH DISCHARGE/MEDS DISCHARGE INFORMATION: Condition on Discharge: Stable CODE STATUS: Code Status: Full HOME HEALTH: Face to Face: I certify this patient is under my care and that I, or a nurse practitioner or physician's zoning assistant working with me, had a face to face encounter that meets the physician face to face encounter requirements with this patient on [Date]. Medical Condition(s): COPD, HTN Physical Therapy For: Evalulation/Treatment Occupational Therapy For: Evaluation/Treatment POST DISCHARGE ORDERS: Activity Instructions for Disc: Resume previous activity DIET AFTER DISCHARGE: Regular FOLLOW UP: Follow up with: pulmonary and cardiology teams CERTIFICATION STATEMENT: Certification Statement: Based on the above finding, I certify that this patient is confined to the home and needs intermittent nursing home care, physical therapy and/or speech therapy, or continues to need occupational therapy.~ This patient is under my care, and I have initiated the establishment of the plan of care.~ This patient will be followed by myself or a community physician who will periodically review the plan of care. DISCHARGE MEDICATIONS: Home Meds Reported Medications Pantoprazole Sodium (PANTOPRAZOLE SODIUM) 40 Mg Tablet.dr, 1 TAB PO DAILYAC for GERD 03/08/19 Guaifenesin (MUCINEX) 600 Mg Tablet.er, 1 TAB PO BID for COPD 03/08/19 Montelukast Sodium (MONTELUKAST SODIUM TABLET) 10 Mg Tablet, 1 TAB PO DAILY for COPD 03/08/19 Aspirin (ASPIRIN EC) 81 Mg Tablet.dr, 1 TAB PO DAILY for CAD 03/08/19 Atorvastatin Calcium (ATORVASTATIN CALCIUM) 40 Mg Tablet, 1 TAB PO DAILY for CHOLESTEROL 03/08/19 Ipratropium/Albuterol Sulfate (DUONEB 0.5-3(2.5) MG/3 ML) 3 Ml Ampul.neb, 3 ML NEB QID for COPD 03/08/19 Albuterol Sulfate (ALBUTEROL SULFATE CONC NEB SOLN) 2.5 Mg/0.5 Ml Vial.neb, 1 VIAL NEB Q2HR for COPD 03/08/19 Budesonide (PULMICORT) 0.5 Mg/2 Ml Ampul.neb, 1 VIAL NEB BID for COPD EXACERBATION 03/08/19 Prednisone (PREDNISONE) 20 Mg Tablet, 40 MG PO DAILY for COPD 03/08/19 Cholecalciferol (Vitamin D3) (VITAMIN D) 1,000 Unit Capsule, 2 CAP PO DAILY for SUPPLEMENT 02/28/19 Vit A/Vit C/Vit E/Zinc/Copper (PRESERVISION AREDS SOFTGEL) 1 Each Capsule, 1 EACH PO DAILY for SUPPLEMENT LAST DOSE GIVEN: DATE: TIME: NEXT DOSE DUE: DATE: TIME: 11/29/14 Multivitamin (MULTI-VITAMIN DAILY) 1 Each Tablet, 1 EACH PO DAILY for SUPPLEMENT LAST DOSE GIVEN: DATE: TIME: NEXT DOSE DUE: DATE: TIME: 11/29/14 Losartan/Hydrochlorothiazide (LOSARTAN-HCTZ 100-12.5 MG TAB) 1 Each Tablet, 1 TAB PO DAILY for HIGH BLOOD PRESSUE LAST DOSE GIVEN: DATE: TIME: NEXT DOSE DUE: DATE: TIME: 11/29/14 Levothyroxine Sodium (LEVOTHYROXINE SODIUM) 50 Mcg Tablet, 1 TAB PO DAILY for THYROID HORMONE SUPPLEMENT LAST DOSE GIVEN: DATE: TIME: NEXT DOSE DUE: DATE: TIME: 11/29/14 Discontinued Reported Medications Hydralazine Hcl (HYDRALAZINE HCL) 50 Mg Tablet, 1 TAB PO TID for HYPERTENSION 03/08/19 HELIO BANGURA MD Mar 13, 2019 10:23
[2019-03-13] MEDS ORDERED: HYDR-2868 PO (10:26)
--- NOTE | 2019-03-13 12:07 | DS ---
DATE OF DISCHARGE: 03/13/2019 HOSPITAL COURSE: The patient is a 73-year-old female patient, who was admitted originally with acute hypoxic hypercapnic respiratory failure, was treated with steroids, nebulized bronchodilators and also antibiotic. She also was diagnosed with non-ST segment elevation myocardial infarction. We did transfer her to [facility] where she was continued on BiPAP machine and tapering course of steroid, did very well and was transferred back to [facility] swing bed and continue the tapering course of steroids and her Trilogy was adjusted and she basically did very well and a decision was made to discharge her home with home health. PHYSICAL EXAMINATION: GENERAL: When I saw her this morning, she was sitting comfortably in her chair, in no apparent respiratory distress. No pallor, jaundice, cyanosis, or thyromegaly. No jugular venous distension. No lower limb edema. VITAL SIGNS: Her heart rate was 90, blood pressure 129/60, temperature was 97.5, respiratory rate was 20, and oxygen saturation was 92% on 3 liters of oxygen. HEAD, EYES, EARS, NOSE AND THROAT: Showed normocephalic, atraumatic. NECK: Supple. HEART: Showed normal first and second heart sounds. No gallop, rub or murmur. CHEST: Shows central trachea, equally reduced expansion, reduced air entry, vesicular sounds. I could not really appreciate any crepitation or rhonchi. ABDOMEN: Slightly distended, soft, nontender. NEUROLOGIC: She is awake, alert, responding appropriately. All cranial nerves intact. EXTREMITIES: She moves extremities without difficulty. She ambulates with a walker. Her intake was 716, no output was recorded. LABORATORY DATA: As of this morning; her serum sodium 140, potassium 4, chloride 103, bicarbonate 32, anion gap of 5, BUN 17, creatinine 0.7, estimated GFR was 82 mL per minute. Her glucose was 78, calcium was 9. Total bilirubin and alkaline phosphatase normal. AST, ALT slightly elevated. Total protein was 6.2, albumin was 3.3. Her white cell count is slightly up at 19,500, hemoglobin 11.8, hematocrit 37, MCV 87 and platelet count of 364,000 with normal manual differential. DISCHARGE MEDICATIONS: She was discharged home with home health to continue on following medications: Hydralazine 25 mg 3 times a day, albuterol sulfate 2.5 mg every 2 hours as needed, aspirin 81 mg once a day, atorvastatin calcium 40 mg daily, Pulmicort 0.5 mg in 2 mL by nebulizer twice a day, cholecalciferol for vitamin D 2000 international units once a day, Mucinex 600 mg twice a day, ipratropium bromide DuoNeb 0.5/2.5 mg 3 mL by nebulizer 4 times a day, levothyroxine sodium 50 mcg once a day, losartan/hydrochlorothiazide 100/12.5 mg once a day, montelukast sodium for Singulair 10 mg once a day, multivitamin 1 tablet once a day, Protonix 40 mg once a day, prednisone 30 mg once a day for a week, then 20 mg once a day for a week and then 15 mg continuously. FINAL DISCHARGE DIAGNOSES: 1. Acute on chronic hypoxic hypercapnic respiratory failure, much improved. 2. Chronic obstructive pulmonary disease, quiescent. 3. Non-ST segment elevation myocardial infarction. 4. Hyperlipidemia. 5. Hypertension. The patient should follow with the soaker soda worker as well as the nib inspector in 2 weeks' time. HELIO BANGURA MD DR: MARINE/yosef JOB#: [id number] / [id number]
== END 2019-03-13 12:08 | disposition home health service (06) | DRG 280 ==
LOC: 1 SOUTH 16:51
PROVIDERS: ADMIT Internal Medicine; ATTEND Internal Medicine
PROC: 5A09357 Assistance with Respiratory Ventilation, Less than 24 Consecutive Hours, Continuous Positive Airway Pressure (ICD-10-PCS; principal; 2019-03-08)
PROC: 5A09357 Assistance with Respiratory Ventilation, Less than 24 Consecutive Hours, Continuous Positive Airway Pressure (ICD-10-PCS; 2019-03-08)
DX: I21.4 Non-ST elevation (NSTEMI) myocardial infarction (principal); J96.21 Acute and chronic respiratory failure with hypoxia; J96.22 Acute and chronic respiratory failure with hypercapnia; E03.9 Hypothyroidism, unspecified; E78.5 Hyperlipidemia, unspecified; I10 Essential (primary) hypertension; J44.9 Chronic obstructive pulmonary disease, unspecified; I25.2 Old myocardial infarction; Z82.49 Family history of ischemic heart disease and other diseases of the circulatory system; Z90.710 Acquired absence of both cervix and uterus; Z98.41 Cataract extraction status, right eye; Z98.42 Cataract extraction status, left eye; Z87.891 Personal history of nicotine dependence
CPT/HCPCS: 36415; 80048; 80053; 85007; 85025; 85027; 93971; 94640; 94660; 94760; J7512; J7620; J7626; 97110; 97116; 97530; 97535

== ENCOUNTER → 2019-04-21 | Outpatient (CLI) | payer MEDICARE ==
[~2019-04-21] MED LIST changes: +ALBU2.5V14 NEB; +ASPI-612 PO; +ATOR40TA59 PO; +BUDE0.5A3 NEB; +GUAI600T47 PO; +HYDR-2868 PO; +HYDR-2869 PO; +IPRA3AMP29 NEB; +MONT10TA80 PO; +PANT40TA5 PO; +PRED20TA PO
--- NOTE | 2019-04-21 11:53 | RAD ---
MR#: [id number] Date of Study: 04/21/2019 Ordering Physician: JERALD ANDERSEN Referring Physician: JANY TROTTER Tech: RT Charlie Wang) (N) APPROVED REPORT Test Type: Pharmacological Stress Nurse/Tech: RT Felipe (Yaw) (N) Test Indications: elevated troponin Cardiac History: family history father [place] at 71y/o Medications: see EHR Medical History: COPD, HTN, ex smoker Resting ECG: sinus rhythm Resting Heart Rate: 71 bpm Resting Blood Pressure: 139/71mmHg Pretest Chest Pain: None Nurse/Tech Notes Consent: The procedure was explained to the patient in lay terms. Informed consent was witnessed. Derick eout was entered into [employer]. History and Stress Test performed by RT Charlie Wang) (N) Pharm. Details Pharmacologic stress testing was performed using Dobutamine with a maximal infusion of 20 mcg/mg/min. POST EXERCISE Reason for Termination: Reached target heart rate Target HR: Yes Max HR: 129 bpm 88% of Maximum Predicted HR: 146 bpm Exercise duration: 9:14 min:sec, 3 Stage Max Blood Pressure: 154/70mmHg INTERPRETATION Stress EKG Conclusion: Baseline EKG showed sinus rhythm. No ischemic changes at peak stress. Few PV C's without any significant arrhythmias. Imaging Protocol IMAGE PROTOCOL: Rest Tc-99m/stress Tc-99m 1 day Rest: Stress: Viability: Radiopharm.Tc99m [id number] Sestamibi [id number] 30.6mCi Duration 20min. 15min. Img Date 04/21/2019 04/21/2019 Inj-Img [id number]. 60min. Rest Admin Site:IV - Right AntecubitalAdministrator: RT Charlie Wang)(N) Stress Admin Site: IV - Right AntecubitalAdministrator: RT Charlie Wang)(N) STRESS DATA End Diast. Vol.74.0mlAv. Heart Rate80.0bpm LVEDV index BSA2.0mlCardiac Output0.1L/min End Syst. Vol.7.0mlCO Index BSA5.3L/min LVESV index BSA0.0mlMyocardial Faot798.0g Eject. Msrykhzp18.0% Stress Rates Pk. Fill Rate3.06EDV/secLVtime Pk. Fill 198.49msec Pk. Empty Rate4.06ESV/secLVtime Pk. Ennpk613.85msec 1/3 Pk. Fill1.88EDV/sec Stress Scores Regional WT0.00Summed WT0.00 Regional WM0.00Summed WM0.00 Study quality was . Left Ventricular size was Normal at Rest and Stress. Lung uptake was . Left Ventricular ejection fraction is >80%. The rest and stress images show normal perfusion, normal contraction and thickening. LV Perf. Quant 17 Seg. SSS4.00 17 Seg. SRS6.00 17 Seg. SDS1.00 Stress Defect Extent (% LAD)5.60Rest Defect Extent (% LAD)4.40Rev. Defect Extent (% LAD)0.00 Stress Defect Extent (% LCX) 0.00Rest Defect Extent (% LCX)0.00Rev. Defect Extent (% LCX)0.00 Stress Defect Extent (% RCA)0.00Rest Defect Extent (% RCA)6.70Rev. Defect Extent (% RCA)0.00 Stress Defect Extent (% SRINIVASA)4.60Rest Defect Extent (% SRINIVASA)6.10Rev. Defect Extent (% SRINIVASA)0.00 Conclusion 1. Regadenoson cardioisotope stress test did not show any evidence of ischemia or infarct. 2. Normal left ventricular systolic function with ejection fraction calculated at >80%. 3. Low risk for cardiac events. Signed by : Jerald Andersen, Electronically Approved : 04/21/2019 11:52:40
== END | disposition home or self-care (01) ==
LOC: NM 07:22
PROVIDERS: ATTEND Internal Medicine Cardiovascular Disease
DX: R79.89 Other specified abnormal findings of blood chemistry (principal); I10 Essential (primary) hypertension; J44.9 Chronic obstructive pulmonary disease, unspecified; Z87.891 Personal history of nicotine dependence; Z82.49 Family history of ischemic heart disease and other diseases of the circulatory system
CPT/HCPCS: 78452; 93017; A9500; J1250; 96375; 96376

== ENCOUNTER → 2019-08-20 | Outpatient (CLI) | payer MEDICARE ==
[~2019-08-20] MED LIST changes: -ACLI400A2 IH; +ACLI400A3 IH
--- NOTE | 2019-08-20 15:33 | RAD ---
EXAM: Chest, 2 views. HISTORY: Shortness of air. COPD. COMPARISON: 03/03/2019 FINDINGS: 2 views the chest are obtained. There is hyperinflation due to emphysema. There is no consolidation, pleural effusion or pneumothorax. There are few calcified granulomas. The heart is normal in size. IMPRESSION: Emphysema. No acute pulmonary finding. Electronically signed by: Kacie Up MD (08/20/2019 3:30 PM) [place] [id number]
== END | disposition home or self-care (01) ==
LOC: DXRAD 09:40
PROVIDERS: ATTEND Physician Assistant Medical
DX: J43.9 Emphysema, unspecified (principal); J84.10 Pulmonary fibrosis, unspecified; Z87.891 Personal history of nicotine dependence
CPT/HCPCS: 71046